=== PATIENT | female | born 1945 | race Caucasian/White ===

== ENCOUNTER → 2016-11-23 | Outpatient (CLI) | payer MEDICARE, OTHER ==
--- NOTE | 2016-11-24 08:24 | MM ---
Reason for exam: screening (asymptomatic). Last mammogram was performed 1 year ago. History: Patient is postmenopausal. Physical Findings: A clinical breast exam by your physician is recommended on an annual basis and results should be correlated with mammographic findings. MG 3D Screening Mammo W/Cad Bilateral CC and MLO view(s) were taken. Prior study comparison: November 21, 2015, bilateral MG screening mammo w CAD. October 11, 2014, bilateral MG screening mammo w CAD. There are scattered fibroglandular densities. No significant changes when compared with prior studies. ASSESSMENT: Benign, BI-RAD 2 RECOMMENDATION: Routine screening mammogram of both breasts in 1 year.
== END | disposition home or self-care (01) ==
LOC: RADMAMWWP 10:02
PROVIDERS: ATTEND Family Medicine
DX: Z12.31 Encounter for screening mammogram for malignant neoplasm of breast (principal)
CPT/HCPCS: 77063; G0202

== ENCOUNTER → 2018-01-18 | Outpatient (CLI) | payer MEDICARE, OTHER ==
--- NOTE | 2018-01-19 10:07 | MM ---
Reason for exam: screening (asymptomatic). Last mammogram was performed 1 year and 2 months ago. History: Patient is postmenopausal. Physical Findings: A clinical breast exam by your physician is recommended on an annual basis and results should be correlated with mammographic findings. MG 3D Screening Mammo W/Cad Bilateral CC and MLO view(s) were taken. Prior study comparison: November 23, 2016, bilateral MG 3d screening mammo w/cad. November 21, 2015, bilateral MG screening mammo w CAD. There are scattered fibroglandular densities. Finding: There are typically benign vascular calcifications in the right breast. There is no discrete abnormality. ASSESSMENT: Benign, BI-RAD 2 RECOMMENDATION: Routine screening mammogram of both breasts in 1 year.
== END | disposition home or self-care (01) ==
LOC: RADMAMWWP 08:32
PROVIDERS: ATTEND Family Medicine
DX: Z12.31 Encounter for screening mammogram for malignant neoplasm of breast (principal)
CPT/HCPCS: 77063; 77067

== ENCOUNTER 2018-03-22 08:08 | Emergency (ER) | payer MEDICARE, OTHER ==
[2018-03-22 08:14] VITALS: RESP 16
[2018-03-22] MEDS ORDERED: SODIUM CHLORIDE 0.9% 1,000 ML IV STA (08:19)
[2018-03-22] MEDS ORDERED: ONDANSETRON 4 MG/2 ML VIAL IVP STA (08:42)
[2018-03-22] MEDS ORDERED: KETOROLAC 30 MG/ML 1 ML VIAL IVP STA (08:42)
--- NOTE | 2018-03-22 08:50 | ED ---
Abdominal Pain HPI - General Chief Complaint: Abdominal Pain Stated Complaint: R flank pain Time Seen by Provider: 03/22/18 08:19 Source: patient, RN notes reviewed Mode of arrival: ambulatory Limitations: no limitations - History of Present Illness Initial Comments: This is a 72-year-old female presents emergency Department chief complaint of right flank pain. Patient states that this pain started around 4:30 this morning and was very intense did lighten up with allow her to drive to the emergency department. Patient states the pain to come and go in waves but never completely alleviate. She states nothing makes the pain feel better or worse. She had nausea earlier denies any vomiting, diarrhea or constipation. Denies chest pain, shortness breath. She states she has known kidney stones from being told based on other studies but states that she's never passed a stone or has never experiences pain. She denies any dysuria or hematuria she's had no fever no chills. - Related Data Home Medications Medication Instructions Recorded Confirmed Aspirin 325 mg PO DAILY 08/31/16 03/22/18 Atorvastatin [Lipitor] 40 mg PO HS 08/31/16 03/22/18 Ibuprofen [Advil] 800 mg PO DAILY@1200 08/31/16 03/22/18 Celecoxib [CeleBREX] 200 mg PO DAILY PRN 03/22/18 03/22/18 Diazepam [Valium] 5 mg PO DAILY PRN 03/22/18 03/22/18 Previous Rx's Medication Instructions Recorded Ketorolac [Toradol] 10 mg PO Q8HR #15 tab 03/22/18 Ondansetron Odt [Zofran Odt] 4 mg PO Q8HR PRN #10 tab 03/22/18 Tamsulosin [Flomax] 0.4 mg PO DAILY #7 cap 03/22/18 traMADol HCl [Ultram] 50 mg PO Q6H PRN #20 tab 03/22/18 Allergies Allergy/AdvReac Type Severity Reaction Status Date / Time gabapentin Allergy Nausea Verified 03/22/18 08:36 hydrocodone Allergy Nausea & Verified 03/22/18 08:36 Vomiting acetaminophen [From Lortab] AdvReac DIZZY Verified 03/22/18 08:36 meloxicam [From Mobic] AdvReac Nausea & Verified 03/22/18 08:36 Vomiting methocarbamol AdvReac Nausea & Verified 03/22/18 08:36 Vomiting morphine AdvReac Nausea & Verified 03/22/18 08:36 Vomiting Review of Systems ROS Statement: Those systems with pertinent positive or pertinent negative responses have been documented in the HPI. ROS Other: All systems not noted in ROS Statement are negative. Past Medical History Additional Past Medical History / Comment(s): fibromygia History of Any Multi-Drug Resistant Organisms: None Reported Past Surgical History: Back Surgery, Section, Hysterectomy Additional Past Surgical History / Comment(s): eye Past Psychological History: No Psychological Hx Reported Smoking Status: Never smoker Past Alcohol Use History: Rare Past Drug Use History: None Reported General Exam Limitations: no limitations General appearance: alert, in no apparent distress Head exam: Present: atraumatic, normocephalic, normal inspection Eye exam: Present: normal appearance, PERRL, EOMI. Absent: scleral icterus, conjunctival injection, periorbital swelling Neck exam: Present: normal inspection. Absent: tenderness, meningismus, lymphadenopathy Respiratory exam: Present: normal lung sounds bilaterally. Absent: respiratory distress, wheezes, rales, rhonchi, stridor Cardiovascular Exam: Present: regular rate, normal rhythm, normal heart sounds. Absent: systolic murmur, diastolic murmur, rubs, gallop, clicks GI/Abdominal exam: Present: soft, normal bowel sounds. Absent: distended, tenderness, guarding, rebound, rigid Back exam: Absent: CVA tenderness (R), CVA tenderness (L) Skin exam: Present: warm, dry, intact, normal color. Absent: rash Course Vital Signs 03/22/18 03/22/18 08:10 09:41 Temperature 97.0 F L Pulse Rate 81 78 Respiratory 16 16 Rate Blood Pressure 174/79 146/69 O2 Sat by Pulse 100 100 Oximetry Medical Decision Making - Medical Decision Making 72-year-old female presented for right flank pain. Patient has a right UVJ 2 mm stone. Patient will be discharged with tramadol, Zofran, Toradol, Flomax. He is advised to follow-up with urology and return for any worsening symptoms. - Lab Data Result diagrams: 03/22/18 08:40 03/22/18 08:40 Lab Results 03/22/18 03/22/18 03/22/18 Range/Units 08:40 08:40 08:40 WBC 11.1 H (3.8-10.6) k/uL RBC 4.61 (3.80-5.40) m/uL Hgb 13.2 (11.4-16.0) gm/dL Hct 40.3 (34.0-46.0) % MCV 87.5 (80.0-100.0) fL MCH 28.5 (25.0-35.0) pg MCHC 32.6 (31.0-37.0) g/dL RDW 13.8 (11.5-15.5) % Plt Count 288 (150-450) k/uL Neutrophils % 85 % Lymphocytes % 9 % Monocytes % 5 % Eosinophils % 1 % Basophils % 0 % Neutrophils # 9.4 H (1.3-7.7) k/uL Lymphocytes # 1.0 (1.0-4.8) k/uL Monocytes # 0.5 (0-1.0) k/uL Eosinophils # 0.1 (0-0.7) k/uL Basophils # 0.0 (0-0.2) k/uL Sodium 143 (137-145) mmol/L Potassium 3.4 L (3.5-5.1) mmol/L Chloride 102 (98-107) mmol/L Carbon Dioxide 25 (22-30) mmol/L Anion Gap 16 mmol/L BUN 21 H (7-17) mg/dL Creatinine 0.99 (0.52-1.04) mg/dL Est GFR (CKD-EPI)AfAm 67 (>60 ml/min/1.73 sqM) Est GFR (CKD-EPI)NonAf 58 (>60 ml/min/1.73 sqM) Glucose 126 H (74-99) mg/dL Calcium 9.7 (8.4-10.2) mg/dL Total Bilirubin 0.4 (0.2-1.3) mg/dL AST 28 (14-36) U/L ALT 32 (9-52) U/L Alkaline Phosphatase 99 (38-126) U/L Total Protein 7.5 (6.3-8.2) g/dL Albumin 4.9 (3.5-5.0) g/dL Amylase 121 H (30-110) U/L Lipase 198 (23-300) U/L Urine Color Yellow Urine Appearance Clear (Clear) Urine pH 6.5 (5.0-8.0) Ur Specific [place] 1.018 (1.001-1.035) Urine Protein Trace H (Negative) Urine Glucose (UA) Negative (Negative) Urine Ketones Negative (Negative) Urine Blood Negative (Negative) Urine Nitrite Negative (Negative) Urine Bilirubin Negative (Negative) Urine Urobilinogen <2.0 (<2.0) mg/dL Ur Leukocyte Esterase Negative (Negative) Disposition Clinical Impression: Right ureteral calculus, Right flank pain Disposition: HOME SELF-CARE Condition: Stable Instructions: Kidney Stones (ED) Additional Instructions: Please return to the Emergency Department if symptoms worsen or any other concerns. Prescriptions: Ketorolac [Toradol] 10 mg PO Q8HR #15 tab Ondansetron Odt [Zofran Odt] 4 mg PO Q8HR PRN #10 tab PRN Reason: Nausea Tamsulosin [Flomax] 0.4 mg PO DAILY #7 cap traMADol HCl [Ultram] 50 mg PO Q6H PRN #20 tab PRN Reason: Pain Is patient prescribed a controlled substance at d/c from ED?: Yes If prescribed controlled substance>3 days was MAPS reviewed?: No When asked, does pt state using other controlled substances?: No Referrals: Juan M Ace MD [Primary Care Provider] - 1-2 days Time of Disposition: 10:46
--- NOTE | 2018-03-22 09:14 | XR ---
Abdomen HISTORY: Kidney stones, right flank pain, abdominal pain Frontal view of the abdomen correlated to CT scan 06/17/2011 Lung bases are clear. There is no evident pneumoperitoneum or bowel obstruction. Degenerative disc ch anges are present within the visualized spine, suspect postop change to the lower lumbar spine. Marke d arthropathy changes present within the bilateral hips. No definite renal calcification identified o n the left, question 2 mm calcification overlying the lower pole of the right kidney. IMPRESSION: Suspect nephrolithiasis as described. Additional findings above.
[2018-03-22 09:16] LABS: Appearance,Urine Clear (Clear); Bilirubin,Urine Negative (Negative); Blood,Urine Negative (Negative); Color,Urine Yellow; Glucose,Urine (UA) Negative (Negative); Ketones,Urine Negative (Negative); Leukocyte Esterase,Urine Negative (Negative); Nitrite,Urine Negative (Negative); PH, Urine 6.5 (5.0-8.0); Protein,Urine Trace (Negative); Specific Gravity,Urine 1.018 (1.001-1.035); Urobilinogen,Urine <2.0 mg/dL (<2.0)
[2018-03-22 09:17] LABS: Basophils % (A) 0 %; Eosinophils # (A) 0.1 k/uL (0-0.7); Eosinophils % (A) 1 %; HCT 40.3 % (34.0-46.0); HGB 13.2 gm/dL (11.4-16.0); Lymphocytes % (A) 9 %; MCH 28.5 pg (25.0-35.0); MCHC 32.6 g/dL (31.0-37.0); MCV 87.5 fL (80.0-100.0); Mean Platelet Volume 7.3; Monocytes # (A) 0.5 k/uL (0-1.0); Monocytes % (A) 5 %; Neutrophils # (A) 9.4 k/uL (1.3-7.7); Neutrophils % (A) 85 %; Platelet Count 288 k/uL (150-450); RBC 4.61 m/uL (3.80-5.40); RDW 13.8 % (11.5-15.5); WBC 11.1 k/uL (3.8-10.6)
[2018-03-22 09:26] LABS: Albumin 4.9 g/dL (3.5-5.0); Calcium 9.7 mg/dL (8.4-10.2); Potassium 3.4 mmol/L (3.5-5.1); Total Bilirubin 0.4 mg/dL (0.2-1.3); Total Protein 7.5 g/dL (6.3-8.2)
--- NOTE | 2018-03-22 10:42 | CT ---
EXAMINATION TYPE: CT abdomen pelvis wo con DATE OF EXAM: 03/22/2018 COMPARISON: NONE HISTORY: 72-year-old female Patient complains of right flank pain. CT DLP: 219 mGycm. Automated exposure control for dose reduction was used. TECHNIQUE: Contiguous axial scanning of the abdomen and pelvis without IV contrast. Coronal and sagit zoey reconstructions performed. FINDINGS: Heart normal size without pericardial effusion. Small hiatal hernia. Strandy atelectasis or scarring lung bases without pleural effusion. Noncontrast appearance of the liver, gallbladder, adrenal glands, spleen, pancreas shows no gross abn ormality. Approximately 5 nonobstructive calculi in the right kidney measuring up to 3 mm. There is mild right- sided hydronephrosis. Punctate 2 mm calculus is seen at the right UVJ, axial image 103. Approximately 9 nonobstructive calculi in the left kidney measuring up to 5 mm. There is a 2.4 cm hyp odense lesion anterior left kidney inadequately characterized on this noncontrast CT. Suspect a cyst. No dilated small bowel, free fluid, or free air. No mesenteric or retroperitoneal lymphadenopathy. Scattered mild to moderate stool especially in the right side of the colon. Mild sigmoid diverticulos is. Bladder is urine distended. Uterus surgically absent. Both ovaries are visualized. No abnormal fluid collection in the pelvis or pelvic lymphadenopathy. Bones: End-stage osteoarthrosis of both hips. Osteopenia. Advanced degenerative changes L3-L4 and L4- L5 with corresponding laminectomies. No osseous destructive process. IMPRESSION: 1. A punctate 2 mm calculus at the right UVJ causing mild obstructive uropathy. 2. Bilateral nephrolithiasis measuring up to 5 mm. 3. Recommend nonemergent follow-up renal ultrasound to ensure that the left kidney lesion represents a 2.4 cm cyst. 4. A couple sigmoid diverticula. 5. End-stage bilateral hip osteoarthrosis.
[2018-03-22 10:58] VITALS: BP 171/79; PULSE 66; TEMP 97.2
== END 2018-03-22 11:00 | disposition home or self-care (01) ==
LOC: EC 08:08
DX: N20.1 Calculus of ureter (principal); M79.7 Fibromyalgia; Z79.82 Long term (current) use of aspirin; Z79.1 Long term (current) use of non-steroidal anti-inflammatories (NSAID); Z79.899 Other long term (current) drug therapy; Z88.8 Allergy status to other drugs, medicaments and biological substances; Z88.5 Allergy status to narcotic agent; Z88.6 Allergy status to analgesic agent
CPT/HCPCS: 99284; 96374; 96375; 36415; 80053; 82150; 83690; 85025; 81003; 74018; 74176; J2405; J1885

== ENCOUNTER → 2018-09-26 | Outpatient (CLI) | payer MEDICARE, OTHER ==
--- NOTE | 2018-09-26 13:15 | XR ---
EXAMINATION TYPE: XR Hip Bilateral and AP pelvis DATE OF EXAM: 09/26/2018 COMPARISON: NONE HISTORY: Pain TECHNIQUE: A single AP view of the pelvis is obtained. Two views of the bilateral hip are obtained. FINDINGS: There is complete loss of joint space bilaterally with remodeling of the acetabulum and fe moral head bilaterally. Benign-appearing cystic changes involving the femoral head. Hypertrophic and degenerative change of the spine. SI joints are symmetric and there is diffuse osteo penia. IMPRESSION: 1. Severe arthropathy of the hip joints bilaterally with complete loss of joint space and remodeling of the acetabulum and femoral head. Osteonecrosis in the differential diagnosis. Consider MRI follow- up.
== END | disposition home or self-care (01) ==
LOC: RADXRMAIN 12:45
PROVIDERS: ATTEND Family Medicine
DX: M16.0 Bilateral primary osteoarthritis of hip (principal)
CPT/HCPCS: 73521

== ENCOUNTER → 2019-02-08 | Outpatient (CLI) | payer MEDICARE, OTHER ==
--- NOTE | 2019-02-08 15:42 | BD ---
EXAMINATION TYPE: Axial Bone Density DATE OF EXAM: 02/08/2019 COMPARISON: NONE CLINICAL HISTORY: Postmenopausal female. Osteoporosis screening. Height: 60 Weight: 114.5 FRAX RISK QUESTIONS: Alcohol (3 or more units per day): no Family History (Parent hip fracture): no Glucocorticoids (More than 3mos): no (Ex: prednisone, prednisolone, methylprednisolone, dexamethasone, and hydrocortisone). History of Fracture in Adulthood: yes Secondary Osteoporosis: 1. Type 1 Diabetes: no 2. Hyperthyroidism: no 3. Menopause before 45: yes 4. Malnutrition: no 5. Chronic liver disease: no Rheumatoid Arthritis: no Current Tobacco Use: no RISK FACTORS HISTORY OF: Spine Fracture: yes lumbar spine When: 2014 Surgery to Spine/Hip(right/left)/Wrist (right/left): spine When: 2014 Family History of Osteoporosis: yes Active: yes Diet low in dairy products/other sources of calcium: yes Postmenopausal woman: age 31 hysterectomy Lost more than 2 inches in height since high school: no MEDICATIONS: lyrica, atorvastatin, celebrex as needed Additional History: EXAM MEASUREMENTS: Bone mineral densitometry was performed using the [employer] System. Bone mineral density about the R hip (g/cm2): 1.272 Bone mineral density about the L hip (g/cm2): 1.214 T Score values are as follows: -----R Neck: 1.7 -----L Neck: 1.3 -----R Total: -1.0 -----L Total: -0.9 Bone mineral density has: increased 6.2 % since study of: Bone mineral density about the L Wrist (g/cm2): 0.553 T Score values are as follows: -----Dist. R+U: -3.4 -----Prox. R+U: -1.1 -----Radius total: -2.0 Bone mineral density : baseline IMPRESSION: Osteoporosis (T Score less than -2.5) with regards to the left wrist. There is increased fracture risk and therapy is usually indicated based on age. Re-Screen 1-2 years. NOTE: T-SCORE=SD OF THE YOUNG ADULT MEAN.
--- NOTE | 2019-02-09 11:02 | MM ---
Reason for exam: screening (asymptomatic). Last mammogram was performed 1 year and 1 month ago. History: Patient is postmenopausal. Physical Findings: A clinical breast exam by your physician is recommended on an annual basis and results should be correlated with mammographic findings. MG 3D Screening Mammo W/Cad Bilateral CC and MLO view(s) were taken. Prior study comparison: January 18, 2018, bilateral MG 3d screening mammo w/cad. November 23, 2016, bilateral MG 3d screening mammo w/cad. The breast tissue is heterogeneously dense. This may lower the sensitivity of mammography. Finding: There is a 5 mm lobulated mass in the subareolar position of the right breast. There is a chronic nodularity in the left breast, stable. ASSESSMENT: Incomplete: need additional imaging evaluation, BI-RAD 0 RECOMMENDATION: Special view mammogram of the right breast. If lesion persists on supplemental views, image directed ultrasound is recommended. [facility] will attempt to contact patient to return for supplemental views and ultrasound if indicated.
== END | disposition home or self-care (01) ==
LOC: RADMAMWWP 07:24
PROVIDERS: ATTEND Family Medicine
DX: Z12.31 Encounter for screening mammogram for malignant neoplasm of breast (principal); M81.0 Age-related osteoporosis without current pathological fracture; Z78.0 Asymptomatic menopausal state
CPT/HCPCS: 77063; 77067; 77080

== ENCOUNTER → 2019-02-14 | Outpatient (CLI) | payer MEDICARE, OTHER ==
--- NOTE | 2019-02-14 14:57 | MM ---
Reason for exam: additional evaluation requested from abnormal screening. Last mammogram was performed less than 1 month ago. History: Patient is postmenopausal. Physical Findings: Nurse did not find any significant physical abnormalities on exam. MG 3D Work Up W/Cad RT Spot compression CC and spot compression MLO view(s) were taken of the right breast. Prior study comparison: February 08, 2019, bilateral MG 3d screening mammo w/cad. January 18, 2018, bilateral MG 3d screening mammo w/cad. There are scattered fibroglandular densities. No significant new findings when compared with previous films. These results were verbally communicated with the patient and result sheet given to the patient on 02/14/19. ASSESSMENT: Benign, BI-RAD 2 RECOMMENDATION: Return to routine screening mammogram schedule for both breasts.
== END | disposition home or self-care (01) ==
LOC: RADMAMWWP 14:01
PROVIDERS: ATTEND Family Medicine
DX: R92.8 Other abnormal and inconclusive findings on diagnostic imaging of breast (principal)
CPT/HCPCS: 77065; G0279; 77061

== ENCOUNTER → 2019-04-19 | Outpatient (CLI) | payer MEDICARE, OTHER ==
--- NOTE | 2019-04-19 22:11 | MR ---
EXAMINATION TYPE: MR lumbar spine wo/w con DATE OF EXAM: 04/19/2019 COMPARISON: MRI lumbar spine April 01, 2015 HISTORY: LBP, LLE radic x 5 weeks, hx surgery x 2 TECHNIQUE: Multiplanar, multisequence images of the lumbar spine is performed without and with IV contrast, util izing 5 mL intravenous Gadavist FINDINGS: Sagittal images of the lumbar spine show vertebral body heights and alignment to remain sat isfactory. Multilevel disc desiccation with multilevel disc space narrowing is again seen. Relative s paring of the L4-L5 level is redemonstrated. Posterior decompression lower lumbar spine is again seen . The conus medullaris remains normal in position and signal ending mid L1 level. There is 1.8 cm Tar howard cyst posterior S2 level sagittal image 9. Mild to moderate multilevel anterior spurring is redemo nstrated. The bone marrow signal intensity is within normal limits. No suspicious postcontrast enhanc ement is seen. Axial images at the T12-L1 level shows mild broad-based disc bulge mildly effacing the anterior theca l sac, bilateral neural foramina are patent and no significant change from prior. Axial images at the L1-L2 levels geer-kb-ewaonmfs broad disc bulge effacing anterior thecal sac on ax ial image 27, bilateral neuroforamina are patent. No significant change from prior. Axial images at the L2-L3 level show moderate broad disc bulge effacing anterior thecal sac with mild facet degenerative changes bilaterally patent posterior left thecal sac. This progression from prior MRI noted. There is mild bilateral anterior inferior neural foraminal narrowing now identified. Axial images at the L3-L4 level show moderate broad disc bulge with ijbx-yb-zsoiflig facet degenerati ve changes bilaterally. There is effacement of anterior thecal sac axial image 18. There is moderate left and mild right-sided neural foraminal narrowing with some progression from prior MRI noted. Axial images at the L4-L5 level show moderate type II endplate changes. Posterior decompression is se en with spinous process resection. There is moderate to advanced broad disc bulge mildly effacing ant erior thecal sac. There is moderate left and advanced right-sided inferior neural foraminal narrowing redemonstrated. No significant change from prior. Axial images at the L5-S1 levels and eamw-zp-kplqlgaq facet degenerative changes bilaterally. There i s yovu-zo-vqqlnlnt broad disc bulge. Spinal canal is preserved. There is wqfr-rq-cgwbdgwi bilateral a nterior inferior neural foraminal narrowing noted. There are a few simple appearing cysts scattered throughout the left kidney. No significant change fr om prior. IMPRESSION: Multilevel degenerative changes in the lumbar spine as detailed above, some progression a t L2-L3 and L3-L4 levels are noted from prior MRI.
== END | disposition home or self-care (01) ==
LOC: RADMRIMAIN 20:14
PROVIDERS: ATTEND Family Medicine
DX: M48.04 Spinal stenosis, thoracic region (principal); M48.061 Spinal stenosis, lumbar region without neurogenic claudication; M48.07 Spinal stenosis, lumbosacral region; M47.816 Spondylosis without myelopathy or radiculopathy, lumbar region; M47.817 Spondylosis without myelopathy or radiculopathy, lumbosacral region; M51.84 Other intervertebral disc disorders, thoracic region; M51.86 Other intervertebral disc disorders, lumbar region; M51.87 Other intervertebral disc disorders, lumbosacral region
CPT/HCPCS: 72158; A9585

== ENCOUNTER → 2019-04-20 | Outpatient (CLI) | payer MEDICARE, OTHER ==
[2019-04-20 10:55] LABS: HCT 38.1 % (34.0-46.0); HGB 12.2 gm/dL (11.4-16.0); MCH 28.7 pg (25.0-35.0); MCHC 32.1 g/dL (31.0-37.0); MCV 89.4 fL (80.0-100.0); Mean Platelet Volume 7.3; Platelet Count 283 k/uL (150-450); RBC 4.27 m/uL (3.80-5.40); RDW 13.4 % (11.5-15.5); WBC 4.4 k/uL (3.8-10.6)
[2019-04-20 11:01] LABS: Appearance,Urine Clear (Clear); Bilirubin,Urine Negative (Negative); Blood,Urine Negative (Negative); Color,Urine Light Yellow; Glucose,Urine (UA) Negative (Negative); Ketones,Urine Negative (Negative); Leukocyte Esterase,Urine Negative (Negative); Nitrite,Urine Negative (Negative); PH, Urine 5.5 (5.0-8.0); Protein,Urine Negative (Negative); Specific Gravity,Urine 1.005 (1.001-1.035); Urobilinogen,Urine <2.0 mg/dL (<2.0)
[2019-04-20 11:15] LABS: INR 0.9 (<1.2)
[2019-04-20 11:16] LABS: ALT 27 U/L (9-52); AST 32 U/L (14-36); African American GFR (CKD) >90 (>60 ml/min/1.73 sqM); Albumin 4.4 g/dL (3.5-5.0); Alkaline Phosphatase 89 U/L (38-126); Anion Gap 7 mmol/L; Blood Urea Nitrogen 18 mg/dL (7-17); Calcium 9.3 mg/dL (8.4-10.2); Carbon Dioxide 27 mmol/L (22-30); Chloride 107 mmol/L (98-107); Glucose 110 mg/dL (74-99); Partial Thromboplastin Time 25.8 sec (22.0-30.0); Potassium 4.2 mmol/L (3.5-5.1); Prothrombin Time 10.1 sec (9.0-12.0); Sodium 141 mmol/L (137-145); Total Bilirubin 0.6 mg/dL (0.2-1.3)
== END | disposition home or self-care (01) ==
LOC: LABPAT 09:44
PROVIDERS: ATTEND Orthopaedic Surgery
DX: Z01.812 Encounter for preprocedural laboratory examination (principal); Z01.818 Encounter for other preprocedural examination; Z79.01 Long term (current) use of anticoagulants
CPT/HCPCS: 36415; 80053; 81003; 85027; 85610; 85730; 87070; 93005

== ENCOUNTER 2019-05-01 11:07 | Inpatient (IN) | payer MEDICARE, OTHER ==
[~2019-05-01 11:07] MED LIST: LACTATED RINGERS 1,000 ML IV SCH; LIDOCAINE 1% 20 ML VIAL (10MG/ML) FOR IV START INTRADERMA PRN; MELOXICAM 7.5 MG TAB PO ONE; MIDAZOLAM 2 MG/2 ML VIAL IV PRN; ONDANSETRON 4 MG/2 ML VIAL IVP ONE; TRANEXAMIC ACID 1,000 MG in SODIUM CHLORIDE 0.9% 100 ML IVPB ONE; ceFAZolin IN SWFI 2 GM/20 ML SYRINGE IVP ONE; fentaNYL (PF) 50 MCG/ML 2 ML AMP IV PRN; fentaNYL (PF) 50 MCG/ML 2 ML AMP IVP PRN
[2019-05-01] MEDS ORDERED: DEXAMETHASONE SOD PHOS (MDV) 100 MG/10 ML VIAL IVP ONE (12:10)
[2019-05-01] MEDS ORDERED: ACETAMINOPHEN TAB 500 MG TAB PO ONE (12:11)
[2019-05-01] MEDS ORDERED: SODIUM CHLORIDE 0.9% 100 ML BAG ONE (12:18)
[2019-05-01] MEDS ORDERED: PROPOFOL 10 MG/ML 20 ML VIAL IV ONE (12:18)
[2019-05-01] MEDS ORDERED: MIDAZOLAM 2 MG/2 ML VIAL ONE (12:18)
[2019-05-01] MEDS ORDERED: fentaNYL (PF) 50 MCG/ML 2 ML AMP ONE (12:18)
[2019-05-01] MEDS ORDERED: ePHEDrine SULFATE/0.9% NACL/PF 50 MG/5 ML SYRINGE IV ONE (12:18)
[2019-05-01] MEDS ORDERED: TRANEXAMIC ACID 1,000 MG/10 ML VIAL ONE (12:18)
[2019-05-01] MEDS ORDERED: ROPIVACAINE 246.25 MG, EPINEPHrine 0.5 MG, KETOROLAC 30 MG, cloNIDine HCL/PF 80 MCG, WA... MISCELLANE STA ×5 (12:51)
[2019-05-01] MEDS ORDERED: ceFAZolin 3,000 MG in SODIUM CHLORIDE 0.9% IRRIGATIO 3,000 ML IRRIGATION ONE (13:18)
[2019-05-01] MEDS ORDERED: LACTATED RINGERS 1,000 ML IV ONE (14:00)
[2019-05-01] MEDS ORDERED: NALOXONE 0.4 MG/ML 1 ML VIAL IV PRN ×2 (14:38→14:41)
[2019-05-01] MEDS ORDERED: TEMAZEPAM 15 MG CAP PO PRN (14:41)
[2019-05-01] MEDS ORDERED: ONDANSETRON 4 MG/2 ML VIAL IVP PRN (14:41)
[2019-05-01] MEDS ORDERED: HYDROmorphone 0.5 MG/0.5 ML SYRINGE IVP PRN ×3 (14:41)
[2019-05-01] MEDS ORDERED: MAGNESIUM HYDROXIDE 2,400 MG/10 ML CUP PO PRN (14:41)
[2019-05-01] MEDS ORDERED: traMADol 50 MG TAB PO PRN (14:41)
--- NOTE | 2019-05-01 15:00 | XR ---
Left hip Limited HISTORY: Postop Single frontal view of the left hip Patient is status post left hip arthroplasty. There is anatomic alignment. Lucency present in the sof t tissues compatible with postop state. Bone mineralization somewhat reduced. IMPRESSION: Orthopedic follow-up.
[2019-05-01] MEDS ORDERED: DIAZEPAM 5 MG TAB PO PRN (16:11)
[2019-05-01] MEDS: LACTATED RINGERS 1,000 ML IV SCH ×2 (17:04→23:57)
[2019-05-01 17:22] VITALS: BMI 21.2
[2019-05-01] MEDS: ceFAZolin IN SWFI 2 GM/20 ML SYRINGE IVP SCH ×2 (18:06→23:56)
[2019-05-01] MEDS ORDERED: PREGABALIN 75 MG CAP PO SCH (21:00)
[2019-05-01] MEDS ORDERED: ATORVASTATIN 40 MG TAB PO SCH (21:00)
[2019-05-01] MEDS ORDERED: SENNOSIDES-DOCUSATE SODIUM 1 EACH TAB PO SCH (21:00)
[2019-05-01] MEDS: ASPIRIN 325 MG TAB PO SCH (21:00)
[2019-05-02 07:55] VITALS: BP 128/73; PULSE 86; RESP 15; TEMP 98.2
--- NOTE | 2019-05-02 08:18 | CONS ---
CONSULTATION DATE OF SERVICE: 05/01/2019. REASON FOR CONSULTATION: Advice regarding hyperlipidemia and other multiple medical issues requested by orthopedics. HISTORY OF PRESENT ILLNESS: This 73-year-old woman with a past medical history of multiple medical problems including CVA/TIA, fibromyalgia, hyperlipidemia, TIA being followed by Dr. Juan M Ace in the outpatient setting was admitted after left hip surgery. The patient is not having chest pain. No palpitations. No headache, loss of consciousness, nausea, diarrhea, fever, rigors or chills. PAST MEDICAL HISTORY: CVA, TIA, fibromyalgia, hyperlipidemia, TIAs, history of back surgery, section. MEDICATIONS: Reviewed and include: 1. Lyrica 75 mg q.h.s. 2. Advil 800 mg daily p.r.n. 3. Valium 5 mg daily p.r.n. 4. Celebrex 200 mg daily p.r.n. 5. Lipitor 40 mg q.h.s. 6. Aspirin 320 mg p.o. daily. 7. Ultram 50 mg q.6h p.r.n. 8. Senokot-S 1 tablet p.o. b.i.d. 9. Aspirin 320 mg b.i.d. ALLERGIES: GABAPENTIN, HYDROCODONE, NAPROSYN, LORTAB, MOBIC. MORPHINE. FAMILY HISTORY: No history of heart disease or strokes in the family. SOCIAL HISTORY: No history of smoking, occasional alcohol intake. REVIEW OF SYSTEMS: ENT: No diminished vision. No diminished hearing. CARDIOVASCULAR: No angina. RESPIRATION: No cough or hemoptysis. GI no nausea or vomiting. : No dysuria. NERVOUS SYSTEM: No numbness or weakness. ALLERGY/IMMUNOLOGY: No asthma or hayfever. MUSCULOSKELETAL as mentioned earlier. HEMATOLOGY/ONCOLOGY: No history of anemia. ENDOCRINE: No history of diabetes or hypothyroidism. CONSTITUTIONAL: As mentioned earlier. DERMATOLOGY: Negative. RHEUMATOLOGY: Negative. PSYCHIATRIC: As mentioned. PHYSICAL EXAMINATION: Alert and oriented times three. Pulse is 69. Blood pressure 135/81, respiration 18, temperature 97.7, pulse ox 98 percent on room air. HEENT: Conjunctivae normal. NECK: No jugular venous distention. CARDIOVASCULAR: S1, S2 muffled. RESPIRATION: Breath sounds diminished in the bases. No rhonchi. No crackles. ABDOMEN: Soft, nontender. LEGS: Status post surgery. NERVOUS SYSTEM as mentioned earlier. Moves all 4 limbs equally. No focal motor deficits. LYMPHATICS: No lymph nodes palpable in the neck, axillae or groin. SKIN: No ulcer, rashes or bleeding. JOINTS: No active deforming arthropathy. LABS: Previous preop labs are reviewed. CBC within normal limits. Coags are normal and chemistry showed glucose 110, otherwise UA showed the most recent UA is unremarkable. ASSESSMENT: 1. Status post subtotal left hip arthroplasty. 2. History of cerebrovascular accident/ transient ischemic attack. 3. Fibromyalgia. 4. Hyperlipidemia. 5. History of transient ischemic attack. 6. Caesarean section. RECOMMENDATIONS AND DISCUSSION: This 73-year-old woman who presented with multiple medical issues, we will monitor the patient closely. Continue the current medications. Resume the home medications. DVT prophylaxis. Incentive spirometry. The patient may be asked to follow with Dr. Ace closely after discharge. Thank you Dr. Ervin for letting us participate in the care of this patient. MMODL / IJN: [id number] / MTDD
[2019-05-02] MEDS ORDERED: MELOXICAM 7.5 MG TAB PO SCH (09:00)
[2019-05-02 09:03] LABS: Basophils % (A) 0 %; Eosinophils % (A) 0 %; HCT 32.1 % (34.0-46.0); HGB 10.3 gm/dL (11.4-16.0); Lymphocytes % (A) 10 %; MCH 29.1 pg (25.0-35.0); MCV 90.8 fL (80.0-100.0); Mean Platelet Volume 7.6; Monocytes # (A) 0.5 k/uL (0-1.0); Monocytes % (A) 4 %; Neutrophils # (A) 8.9 k/uL (1.3-7.7); Neutrophils % (A) 85 %; Platelet Count 279 k/uL (150-450); RBC 3.53 m/uL (3.80-5.40); RDW 13.7 % (11.5-15.5); WBC 10.5 k/uL (3.8-10.6)
--- NOTE | 2019-05-02 09:52 | P.DS ---
Providers Date of admission: 05/01/19 11:07 Expected date of discharge: 05/02/19 Attending physician: Juwan Ervin Consults: 05/01/19 14:41 Consult Physician Routine Consulting Provider: Jay Manrique Consult Reason/Comments: Medical management Do you want consulting provider notified?: Yes 05/02/19 09:30 Consult Physician Urgent Consulting Provider: Anurag Smith Consult Reason/Comments: Radiation left hip Do you want consulting provider notified?: Yes Primary care physician: Juan M Ace - Discharge Diagnosis(es) (1) Osteoarthritis of left hip Current Visit: Yes Status: Acute (2) Status post total hip replacement, left Current Visit: Yes Status: Acute Hospital Course: This is a 73-year-old female with known history of degenerative arthritis of the left hip. The patient presents for evaluation. After discussion and consideration patient elects to proceed with total hip arthroplasty. The patient is seen preoperatively by her primary care physician and cleared for surgery. Patient is admitted to [facility] on 05/01/2019 for total hip arthroplasty. The procedures performed without complication or sequelae. The patient is doing well postoperatively. Labs and vital signs are stable on day of discharge. On day of discharge patient's hip incision is healing well. There is minimal erythema. There is no drainage noted at this time. There is minimal soft tissue swelling to the hip and thigh. Patient has full foot and ankle motion without difficulty or pain. Neurovascular status to the left lower extremity is intact. 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 Patient is discharged to home in good condition. Please see med rec for accurate list of home medications. Plan - Discharge Summary Discharge Rx Participant: No New Discharge Prescriptions: New Aspirin 325 mg PO DAILY #30 tab No Action Atorvastatin [Lipitor] 40 mg PO HS Ibuprofen [Advil] 800 mg PO DAILY@1200 Diazepam [Valium] 5 mg PO DAILY PRN PRN Reason: Anxiety Celecoxib [CeleBREX] 200 mg PO DAILY PRN PRN Reason: Pain Pregabalin [Lyrica] 75 mg PO HS Discharge Medication List Atorvastatin [Lipitor] 40 mg PO HS 08/31/16 [History] Ibuprofen [Advil] 800 mg PO DAILY@1200 08/31/16 [History] Celecoxib [CeleBREX] 200 mg PO DAILY PRN 03/22/18 [History] Diazepam [Valium] 5 mg PO DAILY PRN 03/22/18 [History] Pregabalin [Lyrica] 75 mg PO HS 04/21/19 [History] Aspirin 325 mg PO DAILY #30 tab 05/02/19 [Rx] Follow up Appointment(s)/Referral(s): Beth Mendez, JARON [PHYSICIAN CASHIER MANAGER] - 2 Weeks Activity/Diet/Wound Care/Special Instructions: May shower if no drainage at 48h post op. May bear wt as tolerated w walker. May take advil or celebrex for pain as needed. ASA 325mg once daily X30 days. Discharge Disposition: HOME WITH HOME HEALTH SERVICES
[2019-05-02] MEDS: ASPIRIN 325 MG TAB PO SCH (10:20)
[2019-05-02] MEDS: LACTATED RINGERS 1,000 ML IV SCH (12:12)
--- NOTE | 2019-05-02 23:13 | PN ---
PROGRESS NOTE DATE OF SERVICE: 05/02/2019 This 73-year-old woman being followed by Dr. Juan M Ace in the outpatient setting underwent subtotal left hip arthroplasty. Patient improving significantly. No chest pain. No palpitations. No fever. EXAM: Alert and oriented times three. Pulse is 86. Blood pressure 138/73, respiration 15, temperature 98.2, pulse ox 98% on room air. HEENT: Conjunctivae normal. NECK: No jugular venous distention. CARDIOVASCULAR: S1, S2 muffled. RESPIRATORY: Breath sounds diminished in the bases. No rhonchi. No crackles. ABDOMEN: Soft. LEGS: Status post surgery. NERVOUS SYSTEM: No focal deficits. LABS: Hemoglobin 10.3. Other labs are noted. ASSESSMENT: 1. Status post subtotal left hip arthroplasty. 2. History of cerebrovascular accident/transient ischemic attack. 3. Fibromyalgia. 4. Hyperlipidemia.. 5. History of transient ischemic attack. 6. History of section. RECOMMENDATIONS AND DISCUSSION: Continue current medications, management and symptomatic treatment. Continue DVT prophylaxis. Incentive spirometry. Resume the home medications. Follow closely with Dr. Ace when the patient is maybe in the next 1-2 weeks or p.r.n. Otherwise rest of the recommendations per Orthopedic surgery. Further recommendations to follow. MMODL / IJN: [id number] / [id number]
--- NOTE | 2019-05-03 12:13 | P.OP ---
Date of Procedure: 05/01/19 Procedure(s) Performed: total hip left side fiber metal midcoat tracy 75 ebl no comp PREOPERATIVE DIAGNOSIS: Left hip severe osteoarthritis POSTOPERATIVE DIAGNOSIS: Left hip severe osteoarthritis OPERATION: Left hip total replacement arthroplasty (uncemented implantation with ceramic on polyethylene articulation). ANESTHESIA: Spinal ESTIMATED BLOOD LOSS: 75 ml. EVENT PLANNING MANAGER: Beth Mendez PA-C (assistance with: patient positioning, retraction, exposure, hemostasis, leg positioning, implantation, irrigation, closure, dressing) COMPLICATIONS: None apparent. COMPONENTS IMPLANTED: Simeon Continuum acetabular cup with cluster holes; Continuum longevity 15 elevated liner, 32 mm id; Simeon VerSys Fiber Metal mid coat stem; VerSys Biolox 32 mm ceramic femoral head with 0 mm neck length extension INDICATIONS: Mrs. Brennan is a 73-year-old female with significant end-stage ost eoarthritis involving the left hip and commensurate severe symptoms. She has severely arthritic hips on both sides. She presents to the operating room today for left total hip replacement. Leg lengths were assessed and were found to be basically equal. I have discussed the steps of the operation as well as potential risks and complications as being inclusive of, but not limited to: Leading, infection, scarring, discomfort, or vessel and/or nerve damage, need for further surgery, loosening, dislocation, wear, osteolysis, limb length inequality, fracture, blood clot, pulmonary embolism, , persistent limp, and other risks. We have spoken about the options of approach, posterior versus anterior, and she is comfortable with me proceeding with the posterior approach. The patient is aware these risks and wishes to proceed with surgery and has signed a consent form. PROCEDURE: After appropriate consent was obtained, the patient was taken to the operating room and placed in supine position. Spinal anesthetic was administered and after confirmation of adequate anesthesia, the patient was placed into the lateral decubitus position with the left side up. Care was taken to make sure t hat all pressure points were adequately padded and he was stabilized to the table with a [place] hip positioner. The left hip was prepped and draped in the usual aseptic fashion using a combination of ChloraPrep and alcohol. Ioban drape was used for the case and the patient received intravenous antibiotics prior to the incision. "Time out" was called, confirming patient identity, side, procedure, availability of implants and administration of antibiotics and tranexamic acid. The incision was created directly over the greater trochanter and carried slightly posteriorly for a posterior approach to the hip. The incision was then deepened down to subcutaneous tissue and fascia clara. Fascia clara was split in line with the incision and split proximally along the fibers of the gluteus maxi mus. The underlying fibers of the muscle were teased apart using finger dissection and bleeding vessels were picked up and coagulated. Retractor was then placed posteriorly consisting of a blunt [place]. The short external rotators and capsule were exposed using good visualization of the attachment of the external rotators to the femur was established. The short external rotators and capsule were released using electrocautery from their femoral attachments. A hockey stick shaped incision was created in the capsule. Joint fluid was evacuated and the patient's hip was able to be dislocated fairly easily. The patient's femoral head was severely arthritic with eburnated bone present and a 360 degrees rodríguez of osteophytes. The femoral neck cut was created approximately 1 cm superior to the lesser trochanter using a reciprocating saw. The femoral head and neck fragment was removed and attention was then directed to the acetabulum. An anterior acetabular retractor was applied followed by posterior retraction of the capsule with a Meyerding retractor. This afforded good visualization into the acetabular cavity. Soft tissue was removed and residual cartilage within the acetabular vault was removed using a curette. Labrum was removed using a long-handled knife. Attention was then directed to reaming. The size 44 reamer was used first, followed by increasing increments until the final size reamer was used. Please see the implantation sheet for exact sizes used for the components. Once the final reamer had been utilized to expand the socket it was noted that there was a good supportive bone around the acetabular socket and no further reaming needed to be performed. The trial the same size as the last reamer used was then impacted into the acetabular vault and found to have good fit. The acetabular component, one size (2mm) greater than the trial was then called for. The cluster holes were placed posteriorly and the component was impacted in a position of approximately 40 degrees abduction and 20 degrees anteversion. This matched this patient's [place] anteversion and it was noted that the cup had excellent stability. However, as this patient was 73 years old and had some degree of osteopenia, I placed an approximately 25 mm 6.5 mm screw in the posterior superior cluster hole for additional supplemental fixation. Attention was then directed to the acetabular liner. The anteversion and abduction angle of the component was noted to be very good. A 15 elevated liner was used and locked into position, with the elevation being posterior and superior. Osteophytes around the posterior and inferior aspect of the acetabulum were trimmed as necessary to prevent any impingement. Attention was then directed back to the proximal femur. Retractors were placed around the proximal femur and box osteotome was used followed by canal finder and trochanteric reamer. Cylindrical reaming was performed. Progressive broaching was then performed starting with a #10 broach and progressing final size, in a position of 15 degrees anteversion. [place] anteversion was within 5 degrees of stem position. The final size broach had excellent fit and fill of the patient's metaphysis and diaphysis. Trial reduction was then performed starting with size 32 mm femoral head and various neck combination of stability, limb length equality, and soft tissue tension. Trial components were then removed. The canal was lavaged and the final size femoral stem component was impacted into position. The implant fit very well and had excellent stability. The femoral head was then impacted onto the Cabrera taper. Blood and debris were removed from the acetabular component and the hip was then reduced and checked for stability, limb length and soft tissue tension. These parameters found to be satisfactory, the wound was then thoroughly irrigated with normal saline. Final hemostasis was obtained using electrocautery and IV tranexamic acid, 1 g given at the time of prepping and draping, and another 1 g given at the time of closure. Local anesthetic solution consisting of ropivacaine with epinephrine, clonidine, and ketorolac was also used throughout the case targeting the capsule, fascia, and skin. Closure of the capsule was performed meticulously using #3 Vicryl suture. Four [id number] sutures were placed in the posterior capsule along with repair of the external rotators. The fascia clara was then repaired using combination of #3 Vicryl suture in interrupted fashion and Quill and running fashion. 2-0 Vicryl suture was used for the subcutaneous tissues and 3-0 Quill for the skin. Dermabond or Steri-Strips were then applied. The patient tolerated the procedure well. There were no complications and the wound bed was dry and there was no need for drain placement. Sterile dressing was then applied and the patient was carefully removed from the operating room table, placed on the stretcher and was taken to the recovery room in stable condition. Sponge and needle counts were correct.
== END 2019-05-02 13:49 | disposition home health service (06) | DRG 470 ==
LOC: 2ORMAIN 11:07 → 4SSUR 15:17
PROVIDERS: ADMIT Orthopaedic Surgery; ATTEND Orthopaedic Surgery
PROC: 0SRB04A Replacement of Left Hip Joint with Ceramic on Polyethylene Synthetic Substitute, Uncemented, Open Approach (ICD-10-PCS; principal; 2019-05-01 12:30)
DX: M16.12 Unilateral primary osteoarthritis, left hip (principal); E78.5 Hyperlipidemia, unspecified; M85.80 Other specified disorders of bone density and structure, unspecified site; F41.9 Anxiety disorder, unspecified; M79.7 Fibromyalgia; M51.36 Other intervertebral disc degeneration, lumbar region; Z79.1 Long term (current) use of non-steroidal anti-inflammatories (NSAID); Z79.899 Other long term (current) drug therapy; Z86.73 Personal history of transient ischemic attack (TIA), and cerebral infarction without residual deficits; Z98.891 History of uterine scar from previous surgery; Z98.890 Other specified postprocedural states; Z98.42 Cataract extraction status, left eye; Z98.41 Cataract extraction status, right eye; Z90.710 Acquired absence of both cervix and uterus
CPT/HCPCS: 73501; 85025; 86850; 86900; 86901; 88300

== ENCOUNTER → 2019-09-13 | Outpatient (CLI) | payer MEDICARE, OTHER ==
[2019-09-13 11:03] LABS: Appearance,Urine Clear (Clear); Bilirubin,Urine Negative (Negative); Blood,Urine Negative (Negative); Color,Urine Light Yellow; Glucose,Urine (UA) Negative (Negative); Ketones,Urine Negative (Negative); Leukocyte Esterase,Urine Negative (Negative); Nitrite,Urine Negative (Negative); Protein,Urine Negative (Negative); Specific Gravity,Urine 1.007 (1.001-1.035); Urobilinogen,Urine <2.0 mg/dL (<2.0)
[2019-09-13 11:08] LABS: HCT 39.3 % (34.0-46.0); HGB 12.7 gm/dL (11.4-16.0); MCH 28.7 pg (25.0-35.0); MCHC 32.4 g/dL (31.0-37.0); MCV 88.5 fL (80.0-100.0); Mean Platelet Volume 6.5; Platelet Count 290 k/uL (150-450); RBC 4.44 m/uL (3.80-5.40); RDW 14.1 % (11.5-15.5); WBC 5.9 k/uL (3.8-10.6)
[2019-09-13 11:18] LABS: Albumin 4.6 g/dL (3.5-5.0); Potassium 4.1 mmol/L (3.5-5.1); Total Bilirubin 0.8 mg/dL (0.2-1.3); Total Protein 7.5 g/dL (6.3-8.2)
[2019-09-13 11:19] LABS: INR 0.9 (<1.2); Partial Thromboplastin Time 26.1 sec (22.0-30.0); Prothrombin Time 10.1 sec (9.0-12.0)
== END | disposition home or self-care (01) ==
LOC: LABPAT 09:56
PROVIDERS: ATTEND Orthopaedic Surgery
DX: Z01.810 Encounter for preprocedural cardiovascular examination (principal); Z01.812 Encounter for preprocedural laboratory examination; I50.9 Heart failure, unspecified
CPT/HCPCS: 36415; 80053; 80061; 81003; 85027; 85610; 85730; 86850; 86900; 86901; 87070; 93005

== ENCOUNTER 2019-09-25 14:04 | Inpatient (IN) | payer MEDICARE, OTHER ==
[2019-09-22 08:41] VITALS: BMI 22.2
[~2019-09-25 14:04] MED LIST changes: +ACETAMINOPHEN TAB 500 MG TAB PO ONE; -LIDOCAINE 1% 20 ML VIAL (10MG/ML) FOR IV START INTRADERMA PRN; +ROPIVACAINE 246.25 MG, EPINEPHrine 0.5 MG, KETOROLAC 30 MG, cloNIDine HCL/PF 80 MCG, WA... MISCELLANE ONE; -ceFAZolin IN SWFI 2 GM/20 ML SYRINGE IVP ONE; -fentaNYL (PF) 50 MCG/ML 2 ML AMP IVP PRN
[2019-09-25] MEDS ORDERED: DEXAMETHASONE SOD PHOSPHATE 10 MG/ML 1 ML VIAL IV ONE (14:39)
[2019-09-25] MEDS ORDERED: SCOPOLAMINE 1.5MG/72HR PATCH TRANSDERM ONE (14:39)
[2019-09-25] MEDS ORDERED: ONDANSETRON 4 MG/2 ML VIAL IVP PRN (15:00)
[2019-09-25] MEDS ORDERED: MAGNESIUM HYDROXIDE 2,400 MG/10 ML CUP PO PRN (15:00)
[2019-09-25] MEDS ORDERED: NALOXONE 0.4 MG/ML 1 ML VIAL IV PRN ×2 (15:00→18:12)
[2019-09-25] MEDS ORDERED: ceFAZolin 3,000 MG in SODIUM CHLORIDE 0.9% IRRIGATIO 3,000 ML IRRIGATION ONE (15:35)
[2019-09-25] MEDS ORDERED: LACTATED RINGERS 1,000 ML IV ONE (16:59)
--- NOTE | 2019-09-25 17:17 | P.OP ---
Date of Procedure: 09/25/19 Procedure(s) Performed: PREOPERATIVE DIAGNOSIS: Right hip severe osteoarthritis; osteopenia/diminished bone quality POSTOPERATIVE DIAGNOSIS: Right hip severe osteoarthritis; osteopenia/diminished bone quality OPERATION: Right hip total replacement arthroplasty (uncemented implantation with ceramic on polyethylene articulation). ANESTHESIA: Spinal ESTIMATED BLOOD LOSS: 200 ml. PEER FINANCIAL COUNSELOR: Kamille Martinez NP (assistance with: patient positioning, retraction, exposure, hemostasis, leg positioning, implantation, irrigation, closure, dressing) COMPLICATIONS: None apparent. COMPONENTS IMPLANTED: Simeon continuum acetabular cup 48 mm with cluster holes; continuum longevity 15 elevated liner, 32 mm id; Simeon VerSys Fiber Metal size 11 stem; VerSys 32 mm femoral head with +0 mm neck length extension; 30 mm 6.5 mm acetabular screw INDICATIONS: Mrs. Brennan is a 73-year-old female with significant end-stage osteoarthritis involving the right hip and commensurate severe symptoms. She presents to the operating room today for right total hip replacement. She is artery successfully undergone left total hip replacement earlier this year. I have discussed the steps of the operation as well as potential risks and complications as being inclusive of, but not limited to: Leading, infection, scarring, discomfort, or vessel and/or nerve damage, need for further surgery, loosening, dislocation, wear, osteolysis, limb length inequality, fracture, blood clot, pulmonary embolism, , persistent limp, and other risks. The patient is aware these risks and wishes to proceed with surgery and has signed a consent form. PROCEDURE: After appropriate consent was obtained, the patient was taken to the operating room and placed in supine position. Spinal anesthetic was administered and after confirmation of adequate anesthesia, the patient was placed into the lateral decubitus position with the right side up. Care was taken to make sure that all pressure points were adequately padded and he was stabilized to the table with a [place] hip positioner. The right hip was prepped and draped in the usual aseptic fashion using a combination of ChloraPrep and alcohol. Ioban drape was used for the case and the patient received intravenous antibiotics prior to the incision. "Time out" was called, confirming patient identity, side, procedure, availability of implants and administration of antibiotics. The incision was created directly over the greater trochanter and carried slightly posteriorly for a posterior approach to the hip. The incision was then deepened down to subcutaneous tissue and fascia clara. Fascia clara was split in line with the incision and split proximally along the fibers of the gluteus saumya. The underlying fibers of the muscle were teased apart using finger dissection and bleeding vessels were picked up and coagulated. Retractor was then placed posteriorly consisting of a blunt [place]. The short external rotators and capsule were exposed using good visualization of the attachment of the external rotators to the femur was established. The short external rotators and capsule were released using electrocautery from their femoral attachments. A hockey stick shaped incision was created in the capsule. Joint fluid was evacuated and the patient's hip was able to be dislocated fairly easily. The patient's femoral head was severely arthritic with eburnated bone present and a 360 degrees rodríguez of osteophytes. The femoral neck cut was created approximately 1 cm superior to the lesser trochanter using a reciprocating saw. The femoral head and neck fragment was removed and attention was then directed to the acetabulum. An anterior acetabular retractor was applied followed by posterior retraction of the capsule with a Meyerding retractor. This afforded good visualization into the acetabular cavity. Soft tissue was removed and residual cartilage within the acetabular vault was removed using a curette. Patient had a fairly shallow socket. Labrum was removed using a long-handled knife. Attention was then directed to reaming. The size 44 reamer was used first, followed by increasing increments until the final size reamer was used. Please see the implantation sheet for exact sizes used for the components. Once the final reamer had been ut ilized to expand the socket it was noted that there was a good supportive bone around the acetabular socket and no further reaming needed to be performed. The trial the same size as the last reamer used was then impacted into the acetabular vault and found to have good fit. The continuum acetabular component, one size (2mm) greater than the trial was then called for. The cluster holes were placed posteriorly and the component was impacted in a position of approximately 40 degrees abduction and 20 degrees anteversion. This matched this patient's [place] anteversion and it was noted that the cup had excellent stability but due to this patient's bone quality I felt that additional screw fixation would be beneficial. Therefore, a 30 mm screw was directed posteriorly and superiorly through the acetabular component with again excellent bite. Attention was then directed to the acetabular liner. The anteversion and abduction angle of the component was noted to be very good. A 15 elevated sara er was used and locked into position with the elevation posterior superior. Osteophytes around the posterior and inferior aspect of the acetabulum were trimmed as necessary to prevent any impingement. Attention was then directed back to the proximal femur. Retractors were placed around the proximal femur and box osteotome was used followed by canal finder and trochanteric reamer. Cylindrical reaming was performed. Progressive broaching was then performed starting with a #10 broach and progressing final size, in a position of 15 degrees anteversion. [place] anteversion was within 5 degrees of stem position. The final size broach had excellent fit and fill of the patient's metaphysis and diaphysis. Trial reduction was then performed starting with size 32 mm femoral head and various neck combination of stability, limb length equality, and soft tissue tension. Trial components were then removed. The canal was lavaged and the final size femoral stem component was impacted into position. The implant fit very well and had excellent stability. The femoral head was then impacted onto the Cabrera taper. Blood and debris were removed from the acetabular component and the hip was then reduced and checked for stability, limb length and soft tissue tension. These parameters found to be satisfactory, the wound was then thoroughly irrigated with normal saline. Final hemostasis was obtained using electrocautery and IV tranexamic acid, 1 g given at the time of prepping and draping, and another 1 g given at the time of closure. Local anesthetic solution consisting of ropivacaine with epinephrine, clonidine, and ketorolac was also used throughout the case targeting the capsule, fascia, and skin. Closure of the capsule was performed meticulously using #3 Vicryl suture. Four [id number] sutures were placed in the posterior capsule along with repair of the external rotators. The fascia clara was then repaired using combination of #3 Vicryl suture in interrupted fashion and Quill and running fashion. 2-0 Vicryl suture was used for the subcutaneous tissues and 3-0 Quill for the skin. Dermabond or Steri-Strips were then applied. The patient tolerated the procedure well. There were no complications and the wound bed was dry and there was no need for drain placement. Sterile dressing was then applied and the patient was carefully removed from the operating room table, placed on the stretcher and was taken to the recovery room in stable condition. Sponge and needle counts were correct.
[2019-09-25] MEDS ORDERED: HYDROmorphone 0.5 MG/0.5 ML SYRINGE IVP PRN ×3 (18:12)
[2019-09-25] MEDS: LACTATED RINGERS 1,000 ML IV SCH (18:23)
--- NOTE | 2019-09-25 18:32 | XR ---
EXAMINATION TYPE: XR Hip Limited RT DATE OF EXAM: 09/25/2019 COMPARISON: NONE HISTORY: Postop TECHNIQUE: Single view FINDINGS: There is right hip prosthesis. Components are in anatomic position. IMPRESSION: No complicating process seen.
[2019-09-25] MEDS: ASPIRIN 325 MG TAB PO SCH (20:41)
[2019-09-25] MEDS ORDERED: ATORVASTATIN 40 MG TAB PO SCH (21:00)
[2019-09-25] MEDS ORDERED: SENNOSIDES-DOCUSATE SODIUM 1 EACH TAB PO SCH (21:00)
[2019-09-25] MEDS ORDERED: PREGABALIN 75 MG CAP PO SCH (21:00)
[2019-09-26 05:02] LABS: Glucose,Whole Blood 187 mg/dL (75-99)
[2019-09-26] MEDS: LACTATED RINGERS 1,000 ML IV SCH ×2 (05:50→08:50)
[2019-09-26 08:01] VITALS: BP 102/58; PULSE 88; RESP 16; TEMP 98.2
--- NOTE | 2019-09-26 08:35 | P.DS ---
Providers Date of admission: 09/25/19 14:04 Expected date of discharge: 09/26/19 Attending physician: Juwan Ervin Consults: 09/25/19 15:00 Consult Physician Routine Consulting Provider: Juan M Ace Consult Reason/Comments: Medical management Do you want consulting provider notified?: Yes Primary care physician: Juan M Ace - Discharge Diagnosis(es) (1) Primary osteoarthritis of right hip Status: Acute (2) Status post total hip replacement, right Status: Acute Hospital Course: This is a 73-year-old female with known history of degenerative arthritis of the right hip. The patient presents for evaluation. After discussion and consideration patient elects to proceed with total hip arthroplasty. The patient is seen preoperatively by Dr. Juan M Ace and cleared for surgery. Patient is admitted to [facility] on 09/25/2019 for total hip ar throplasty. The procedures performed without complication or sequelae. The patient is doing well postoperatively. Labs and vital signs are stable on day of discharge. On day of discharge patient's hip incision is healing well. There is minimal erythema. There is no drainage noted at this time. There is minimal soft tissue swelling to the hip and thigh. Patient has full foot and ankle motion without difficulty or pain. Neurovascular status to the right lower extremity is intact. Patient is discharged to home in good condition. Pertinent Studies: Laboratory Tests 09/26/19 08:17 WBC 10.7 H RBC 2.81 L Hgb 8.2 L D Hct 25.3 L Neutrophils # 9.3 H Lymphocytes # 0.9 L Patient Condition at Discharge: Stable Plan - Discharge Summary Discharge Rx Participant: Yes New Discharge Prescriptions: New Aspirin 325 mg PO DAILY #30 tab Continue Atorvastatin [Lipitor] 40 mg PO HS Diazepam [Valium] 5 mg PO DAILY PRN PRN Reason: Anxiety Pregabalin [Lyrica] 75 mg PO HS Aspirin 325 mg PO DAILY #30 tab Acetaminophen [Tylenol] 325 mg PO Q6HR PRN PRN Reason: Pain Discontinued Ibuprofen [Advil] 800 mg PO DAILY@1200 Celecoxib [CeleBREX] 200 mg PO DAILY PRN PRN Reason: Pain Discharge Medication List Atorvastatin [Lipitor] 40 mg PO HS 08/31/16 [History] Diazepam [Valium] 5 mg PO DAILY PRN 03/22/18 [History] Pregabalin [Lyrica] 75 mg PO HS 04/21/19 [History] Aspirin 325 mg PO DAILY #30 tab 05/02/19 [Rx] Acetaminophen [Tylenol] 325 mg PO Q6HR PRN 09/22/19 [History] Aspirin 325 mg PO DAILY #30 tab 09/26/19 [Rx] Follow up Appointment(s)/Referral(s): Juan M Ace MD [Primary Care Provider] - 10/03/19 10:40 am [facility], [NON-STAFF] - 1 Week Juwan Ervin MD [STAFF PHYSICIAN] - 10/12/19 2:05 pm Patient Instructions/Handouts: Total Hip Replacement (DC) Activity/Diet/Wound Care/Special Instructions: Keep incision clean and dry. Apply dry gauze over incision to prevent rubbing. May shower in 48 hours after surgery if no drainage from incision. Weightbearing as tolerated with a walker. Aspirin 325mg daily. Advil and celebrex as needed. Follow up with Dr. Ervin in 2 weeks. Call [facility] with any questions or concerns, . Discharge Disposition: HOME WITH HOME HEALTH SERVICES
[2019-09-26] MEDS: ASPIRIN 325 MG TAB PO SCH (08:50)
[2019-09-26] MEDS ORDERED: MELOXICAM 7.5 MG TAB PO SCH (09:00)
[2019-09-26 09:41] LABS: Basophils % (A) 0 %; Eosinophils % (A) 0 %; HCT 25.3 % (34.0-46.0); Lymphocytes # (A) 0.9 k/uL (1.0-4.8); Lymphocytes % (A) 8 %; MCH 29.1 pg (25.0-35.0); MCHC 32.4 g/dL (31.0-37.0); MCV 89.9 fL (80.0-100.0); Mean Platelet Volume 6.1; Monocytes # (A) 0.4 k/uL (0-1.0); Monocytes % (A) 4 %; Neutrophils # (A) 9.3 k/uL (1.3-7.7); Neutrophils % (A) 87 %; Platelet Count 286 k/uL (150-450); RBC 2.81 m/uL (3.80-5.40); RDW 14.6 % (11.5-15.5); WBC 10.7 k/uL (3.8-10.6)
[2019-09-26 09:42] LABS: HGB 8.2 gm/dL (11.4-16.0)
--- NOTE | 2019-09-26 11:17 | P.CONS ---
History of Present Illness - History of Present Illness 73-year-old female is postoperative total right hip arthroplasty for osteoart hritis. Patient is sitting in chair at bedside a ready to be discharged Review of Systems Musculoskeletal: right: knee pain Past Medical History Past Medical History: CVA/TIA, Fibromyalgia, Hyperlipidemia, Osteoarthritis (OA) Additional Past Medical History / Comment(s): hx of kidney stones, states had several "silent" TIA's History of Any Multi-Drug Resistant Organisms: None Reported Past Surgical History: Back Surgery, Section, Hysterectomy, Joint Replacement Additional Past Surgical History / Comment(s): retina sx, bibi cataracts, left hip replacement Past Anesthesia/Blood Transfusion Reactions: Postoperative Nausea & Vomiting (PONV) Past Psychological History: No Psychological Hx Reported Smoking Status: Never smoker Past Alcohol Use History: Rare Past Drug Use History: None Reported - Past Family History Mother Family Medical History: No Reported History Medications and Allergies Home Medications Medication Instructions Recorded Confirmed Type Atorvastatin [Lipitor] 40 mg PO HS 08/31/16 09/22/19 History Ibuprofen [Advil] 800 mg PO DAILY@1200 08/31/16 09/22/19 History Celecoxib [CeleBREX] 200 mg PO DAILY PRN 03/22/18 09/22/19 History Diazepam [Valium] 5 mg PO DAILY PRN 03/22/18 09/22/19 History Pregabalin [Lyrica] 75 mg PO HS 04/21/19 09/22/19 History Aspirin 325 mg PO DAILY #30 tab 05/02/19 09/22/19 Rx Acetaminophen [Tylenol] 325 mg PO Q6HR PRN 09/22/19 09/22/19 History Aspirin 325 mg PO DAILY #30 tab 09/26/19 Rx Allergies Allergy/AdvReac Type Severity Reaction Status Date / Time gabapentin Allergy Nausea Verified 09/22/19 08:35 hydrocodone Allergy Nausea & Verified 09/22/19 08:35 Vomiting naproxen Allergy Nausea Verified 09/22/19 08:35 hydromorphone [From Dilaudid] AdvReac Nausea & Verified 09/22/19 08:35 Vomiting meloxicam [From Mobic] AdvReac Nausea & Verified 09/22/19 08:35 Vomiting methocarbamol AdvReac Nausea & Verified 09/22/19 08:35 Vomiting morphine AdvReac Nausea & Verified 09/22/19 08:35 Vomiting tramadol AdvReac Nausea & Verified 09/22/19 08:48 Vomiting & dizzyness Physical Exam Vitals: Vital Signs Temp Pulse Pulse Resp BP Pulse Ox 09/26/19 08:00 98.2 F 88 16 102/58 95 09/26/19 06:42 90 92/55 95 09/26/19 05:41 93 95/53 94 L 09/26/19 05:19 88 96/52 93 L 09/26/19 04:41 84 96/50 94 L 09/26/19 04:11 73 96/51 95 09/26/19 03:41 79 96/54 95 09/26/19 03:26 84 95/49 96 09/26/19 02:55 68 106/58 94 L 09/26/19 02:40 78 106/58 96 09/26/19 02:25 75 110/62 95 09/26/19 02:11 87 101/56 97 09/26/19 01:55 75 106/61 97 09/26/19 01:40 67 108/58 96 09/26/19 01:25 77 106/61 95 09/26/19 01:10 73 102/58 96 09/26/19 00:56 74 99/55 99 09/26/19 00:41 66 101/51 98 09/26/19 00:25 60 100/61 97 09/26/19 00:11 66 119/62 100 09/25/19 23:55 67 103/66 94 L 09/25/19 23:38 53 L 92/58 92 L 09/25/19 23:34 56 L 65/36 90 L 09/25/19 20:45 73 124/74 98 09/25/19 20:30 73 122/70 97 09/25/19 20:15 75 111/65 98 09/25/19 20:00 74 122/69 94 L 09/25/19 19:45 78 123/73 97 09/25/19 19:30 69 123/71 99 09/25/19 19:15 69 125/78 99 09/25/19 18:40 98.3 F 73 18 120/60 99 09/25/19 18:13 80 16 115/55 97 09/25/19 17:58 69 16 121/59 100 09/25/19 17:43 97.8 F 76 16 141/63 95 09/25/19 14:28 98 F 82 16 98 Intake and Output 09/25/19 09/26/19 09/26/19 22:59 06:59 14:59 Intake Total 951 250 Output Total 200 575 350 Balance 751 -575 -100 Intake: IV 951 Oral 250 Output: Urine 575 350 Estimated Blood Loss 200 Other: Voiding Method Toilet Bedpan # Voids 0 2 Weight 51.71 kg - Constitutional General appearance: mild distress - EENT Eyes: PERRLA Ears: bilateral: normal - Neck Neck: normal ROM - Respiratory Respiratory: bilateral: CTA - Cardiovascular Rhythm: regular - Gastrointestinal General gastrointestinal: soft - Integumentary Integumentary: normal - Neurologic Neurologic: CNII-XII intact - Psychiatric Psychiatric: A&O x's 3, appropriate affect, intact judgment & insight Results CBC & Chem 7: 09/26/19 08:17 Labs: Abnormal Lab Results - Last 24 Hours (Table) 09/25/19 09/26/19 Range/Units 23:34 08:17 WBC 10.7 H (3.8-10.6) k/uL RBC 2.81 L (3.80-5.40) m/uL Hgb 8.2 L D (11.4-16.0) gm/dL Hct 25.3 L (34.0-46.0) % Neutrophils # 9.3 H (1.3-7.7) k/uL Lymphocytes # 0.9 L (1.0-4.8) k/uL POC Glucose (mg/dL) 187 H (75-99) mg/dL Assessment and Plan Plan: Assessment post total right hip arthroplasty Osteoarthritis History of hyperlipidemia Fibromyalgia Lumbar degenerative disc disease history of CVA/TIA Anemia secondary to blood loss expected Plan Stable for discharge
== END 2019-09-26 11:51 | disposition home health service (06) | DRG 470 ==
LOC: 2ORMAIN 14:04 → 4SSUR 17:52
PROVIDERS: ADMIT Orthopaedic Surgery; ATTEND Orthopaedic Surgery
PROC: 0SR904A Replacement of Right Hip Joint with Ceramic on Polyethylene Synthetic Substitute, Uncemented, Open Approach (ICD-10-PCS; principal; 2019-09-25 15:20)
DX: M16.11 Unilateral primary osteoarthritis, right hip (principal); D62 Acute posthemorrhagic anemia; E78.5 Hyperlipidemia, unspecified; M79.7 Fibromyalgia; M85.80 Other specified disorders of bone density and structure, unspecified site; M51.36 Other intervertebral disc degeneration, lumbar region; Z79.1 Long term (current) use of non-steroidal anti-inflammatories (NSAID); Z79.82 Long term (current) use of aspirin; Z79.899 Other long term (current) drug therapy; Z86.73 Personal history of transient ischemic attack (TIA), and cerebral infarction without residual deficits; Z87.442 Personal history of urinary calculi; Z90.710 Acquired absence of both cervix and uterus; Z96.642 Presence of left artificial hip joint; Z88.6 Allergy status to analgesic agent; Z88.5 Allergy status to narcotic agent; Z88.8 Allergy status to other drugs, medicaments and biological substances; Z98.42 Cataract extraction status, left eye; Z98.41 Cataract extraction status, right eye; Z96.1 Presence of intraocular lens
CPT/HCPCS: 36415; 73501; 85025; 86850; 86900; 86901; 88300

== ENCOUNTER → 2020-07-19 | Outpatient (CLI) | payer MEDICARE, OTHER ==
--- NOTE | 2020-07-22 12:00 | MM ---
Reason for exam: screening (asymptomatic). Last mammogram was performed 1 year and 5 months ago. History: Patient is postmenopausal. Physical Findings: A clinical breast exam by your physician is recommended on an annual basis and results should be correlated with mammographic findings. MG 3D Screening Mammo W/Cad Bilateral CC and MLO view(s) were taken. Prior study comparison: February 14, 2019, right breast MG 3d work up w/cad RT. February 08, 2019, bilateral MG 3d screening mammo w/cad. There are scattered fibroglandular densities. No significant changes when compared with prior studies. ASSESSMENT: Benign, BI-RAD 2 RECOMMENDATION: Routine screening mammogram of both breasts in 1 year.
== END | disposition home or self-care (01) ==
LOC: RADMAMWWP 07:31
PROVIDERS: ATTEND Family Medicine
DX: Z12.31 Encounter for screening mammogram for malignant neoplasm of breast (principal)
CPT/HCPCS: 77063; 77067

== ENCOUNTER → 2021-08-01 | Outpatient (CLI) | payer MEDICARE, OTHER ==
--- NOTE | 2021-08-05 10:18 | MM ---
Reason for exam: screening (asymptomatic). Last mammogram was performed 1 year ago. History: Patient is postmenopausal. Physical Findings: A clinical breast exam by your physician is recommended on an annual basis and results should be correlated with mammographic findings. MG 3D Screening Mammo W/Cad Bilateral CC and MLO view(s) were taken. Prior study comparison: July 19, 2020, bilateral MG 3d screening mammo w/cad. February 08, 2019, bilateral MG 3d screening mammo w/cad. January 18, 2018, bilateral MG 3d screening mammo w/cad. There are scattered fibroglandular densities. Stable superior left MLO asymmetric density. No significant changes when compared with prior studies. ASSESSMENT: Benign, BI-RAD 2 RECOMMENDATION: Routine screening mammogram of both breasts in 1 year.
== END | disposition home or self-care (01) ==
LOC: RADMAMWWP 15:06
PROVIDERS: ATTEND Family Medicine
DX: Z12.31 Encounter for screening mammogram for malignant neoplasm of breast (principal); Z78.0 Asymptomatic menopausal state
CPT/HCPCS: 77063; 77067

== ENCOUNTER → 2022-03-18 | Outpatient (CLI) | payer MEDICARE ==
--- NOTE | 2022-03-18 16:30 | BD ---
EXAMINATION TYPE: Axial Bone Density DATE OF EXAM: 03/18/2022 COMPARISON: 02/08/2019 CLINICAL HISTORY: 76 years year old Female. ICD-10 CODE: Z78.0 MENOPAUSAL STATE Height: 59 IN Weight: 115 LBS FRAX RISK QUESTIONS: Secondary Osteoporosis: 3. Menopause before 45: PARTIAL HYST AGE 34 RISK FACTORS HISTORY OF: Surgery to Spine/Hip(RE[facility]): L SPINE 2013 AND 2014; [facility] HIP REPLACEMENTS 2018 Active: YES Diet low in dairy products/other sources of calcium: YES Postmenopausal woman: PARTIAL HYST AGE 34 MEDICATIONS: Osteoporosis Medications: NOT NOW Which medication: Fosamax How Long: NOT NOW TOOK FOR 3 YEARS Additional Medications: ASPIRIN, ADVIL, LYRICA,ATORVASTATIN EXAM MEASUREMENTS: Bone mineral densitometry was performed using the [employer]. PT HAS HAD L- SPINE SURGERY IN 2013 AND 2014 RE[facility] HIP REPLACEMENTS 2018 Bone mineral density about the L Wrist (g/cm2): 0.549 T Score values are as follows: -----Dist. R+U: -3.1 -----Prox. R+U: -1.6 -----Radius total: -2.1 Bone mineral density has: Decreased -5.3% since study of: 02/08/2019 IMPRESSION: Osteopenia (T Score between -2.5 and -1). There is slightly increased risk of fracture and the patient may be considered for treatment. Re-Screen 2-5 years. NOTE: T-SCORE=SD OF THE YOUNG ADULT MEAN.
== END | disposition home or self-care (01) ==
LOC: RADBDWWP 11:12
PROVIDERS: ATTEND Family Medicine
DX: M85.80 Other specified disorders of bone density and structure, unspecified site (principal)
CPT/HCPCS: 77081

== ENCOUNTER 2022-06-23 00:19 | Emergency (ER) | payer MEDICARE ==
[2022-06-23 00:45] VITALS: TEMP 98.3
[2022-06-23] MEDS ORDERED: ONDANSETRON 4 MG/2 ML VIAL IVP STA (02:36)
[2022-06-23] MEDS ORDERED: SODIUM CHLORIDE 0.9% 1,000 ML IV STA (02:36)
--- NOTE | 2022-06-23 02:37 | ED ---
Abdominal Pain HPI - General Chief Complaint: Abdominal Pain Stated Complaint: Right Flank Pain, Possible Kidney Stone Time Seen by Provider: 06/23/22 02:36 Source: patient, RN notes reviewed, old records reviewed Mode of arrival: ambulatory Limitations: no limitations - History of Present Illness Initial Comments: This is a 76-year-old female DF for evaluation she presents today for evaluation of severe right flank pain. History of kidney stones feels like kidney stones. Patient is denying requiring anything pain medication for this but she is wa lking around the room holding aside like she does have a kidney stone. Patient has positive nausea no vomiting no fevers no other complaints MD Complaint: abdominal pain, flank pain -: hour(s) Location: R flank Radiation: none Migration to: no migration Severity: severe Severity scale (1-10): 9 Quality: stabbing Consistency: constant Improves With: nothing Worsens With: nothing Associated Symptoms: nausea Treatments Prior to Arrival: NSAIDs - Related Data Home Medications Medication Instructions Recorded Confirmed Atorvastatin [Lipitor] 40 mg PO HS 08/31/16 09/22/19 diazePAM [Valium] 5 mg PO DAILY PRN 03/22/18 09/22/19 Pregabalin [Lyrica] 75 mg PO HS 04/21/19 09/22/19 Acetaminophen [Tylenol] 325 mg PO Q6HR PRN 09/22/19 09/22/19 Previous Rx's Medication Instructions Recorded Aspirin 325 mg PO DAILY #30 tab 05/02/19 Aspirin 325 mg PO DAILY #30 tab 09/26/19 Allergies Allergy/AdvReac Type Severity Reaction Status Date / Time gabapentin Allergy Nausea Verified 06/23/22 00:41 hydrocodone Allergy Nausea & Verified 06/23/22 00:41 Vomiting naproxen Allergy Nausea Verified 06/23/22 00:41 hydromorphone [From Dilaudid] AdvReac Nausea & Verified 06/23/22 00:41 Vomiting meloxicam [From Mobic] AdvReac Nausea & Verified 06/23/22 00:41 Vomiting methocarbamol AdvReac Nausea & Verified 06/23/22 00:41 Vomiting morphine AdvReac Nausea & Verified 06/23/22 00:41 Vomiting tramadol AdvReac Nausea & Verified 06/23/22 00:41 Vomiting & dizzyness Review of Systems ROS Statement: Those systems with pertinent positive or pertinent negative responses have been documented in the HPI. ROS Other: All systems not noted in ROS Statement are negative. Past Medical History Past Medical History: CVA/TIA, Fibromyalgia, Hyperlipidemia Additional Past Medical History / Comment(s): fibromygia History of Any Multi-Drug Resistant Organisms: None Reported Past Surgical History: Back Surgery, Section, Hysterectomy Additional Past Surgical History / Comment(s): eye Past Anesthesia/Blood Transfusion Reactions: Postoperative Nausea & Vomiting (PONV) Past Psychological History: No Psychological Hx Reported Smoking Status: Never smoker Past Alcohol Use History: Rare Past Drug Use History: None Reported - Past Family History Mother Family Medical History: No Reported History General Exam Limitations: no limitations General appearance: alert, in no apparent distress, anxious Head exam: Present: atraumatic, normocephalic, normal inspection Eye exam: Present: normal appearance, PERRL, EOMI. Absent: scleral icterus, conjunctival injection, periorbital swelling ENT exam: Present: normal exam, mucous membranes moist Neck exam: Present: normal inspection. Absent: tenderness, meningismus, lymphadenopathy Respiratory exam: Present: normal lung sounds bilaterally. Absent: respiratory distress, wheezes, rales, rhonchi, stridor Cardiovascular Exam: Present: regular rate, normal rhythm, normal heart sounds. Absent: systolic murmur, diastolic murmur, rubs, gallop, clicks GI/Abdominal exam: Present: soft, normal bowel sounds. Absent: distended, tenderness, guarding, rebound, rigid Extremities exam: Present: normal inspection, full ROM, normal capillary refill. Absent: tenderness, pedal edema, joint swelling, calf tenderness Back exam: Present: normal inspection Neurological exam: Present: alert, oriented X3, CN II-XII intact Psychiatric exam: Present: normal affect, normal mood Skin exam: Present: warm, dry, intact, normal color. Absent: rash Course Vital Signs 06/23/22 06/23/22 00:41 04:27 Temperature 98.3 F Pulse Rate 77 88 Respiratory 16 15 Rate Blood Pressure 169/82 143/77 O2 Sat by Pulse 98 98 Oximetry - Reevaluation(s) Reevaluation #1: 06/23/22 06:46 Medical record is reviewed Reevaluation #2: 06/23/22 06:46 Patient's pain is controlled Reevaluation #3: 06/23/22 06:46 Patient informed results and questions are answered Medical Decision Making - Medical Decision Making 76 female to the ER for evaluation patient presents today for evaluation of flank pain. Patient is positive for kidney stone but now requiring requesting anything greater than Aleve. Patient will be discharged home - Lab Data Result diagrams: 06/23/22 03:14 06/23/22 03:14 Lab Results 06/23/22 06/23/22 06/23/22 Range/Units 03:14 03:14 03:14 WBC 12.2 H (3.8-10.6) k/uL RBC 4.60 (3.80-5.40) m/uL Hgb 13.8 (11.4-16.0) gm/dL Hct 42.9 (34.0-46.0) % MCV 93.3 (80.0-100.0) fL MCH 29.9 (25.0-35.0) pg MCHC 32.1 (31.0-37.0) g/dL RDW 13.2 (11.5-15.5) % Plt Count 263 (150-450) k/uL MPV 7.3 Neutrophils % 78 % Lymphocytes % 13 % Monocytes % 5 % Eosinophils % 2 % Basophils % 1 % Neutrophils # 9.5 H (1.3-7.7) k/uL Lymphocytes # 1.5 (1.0-4.8) k/uL Monocytes # 0.6 (0-1.0) k/uL Eosinophils # 0.2 (0-0.7) k/uL Basophils # 0.1 (0-0.2) k/uL PT 10.3 (9.0-12.0) sec INR 0.9 (<1.2) APTT 24.2 (22.0-30.0) sec Sodium 144 (137-145) mmol/L Potassium 3.7 (3.5-5.1) mmol/L Chloride 106 (98-107) mmol/L Carbon Dioxide 25 (22-30) mmol/L Anion Gap 13 mmol/L BUN 14 (7-17) mg/dL Creatinine 0.91 (0.52-1.04) mg/dL Est GFR (CKD-EPI)AfAm 71 (>60 ml/min/1.73 sqM) Est GFR (CKD-EPI)NonAf 62 (>60 ml/min/1.73 sqM) Glucose 103 H (74-99) mg/dL Plasma Lactic Acid Asaf (0.7-2.0) mmol/L Calcium 9.7 (8.4-10.2) mg/dL Total Bilirubin 0.4 (0.2-1.3) mg/dL AST 33 (14-36) U/L ALT 25 (4-34) U/L Alkaline Phosphatase 101 (38-126) U/L Total Protein 7.6 (6.3-8.2) g/dL Albumin 4.8 (3.5-5.0) g/dL Amylase 113 H (30-110) U/L Lipase 192 (23-300) U/L 06/23/22 Range/Units 03:14 WBC (3.8-10.6) k/uL RBC (3.80-5.40) m/uL Hgb (11.4-16.0) gm/dL Hct (34.0-46.0) % MCV (80.0-100.0) fL MCH (25.0-35.0) pg MCHC (31.0-37.0) g/dL RDW (11.5-15.5) % Plt Count (150-450) k/uL MPV Neutrophils % % Lymphocytes % % Monocytes % % Eosinophils % % Basophils % % Neutrophils # (1.3-7.7) k/uL Lymphocytes # (1.0-4.8) k/uL Monocytes # (0-1.0) k/uL Eosinophils # (0-0.7) k/uL Basophils # (0-0.2) k/uL PT (9.0-12.0) sec INR (<1.2) APTT (22.0-30.0) sec Sodium (137-145) mmol/L Potassium (3.5-5.1) mmol/L Chloride (98-107) mmol/L Carbon Dioxide (22-30) mmol/L Anion Gap mmol/L BUN (7-17) mg/dL Creatinine (0.52-1.04) mg/dL Est GFR (CKD-EPI)AfAm (>60 ml/min/1.73 sqM) Est GFR (CKD-EPI)NonAf (>60 ml/min/1.73 sqM) Glucose (74-99) mg/dL Plasma Lactic Acid Asaf 0.8 (0.7-2.0) mmol/L Calcium (8.4-10.2) mg/dL Total Bilirubin (0.2-1.3) mg/dL AST (14-36) U/L ALT (4-34) U/L Alkaline Phosphatase (38-126) U/L Total Protein (6.3-8.2) g/dL Albumin (3.5-5.0) g/dL Amylase (30-110) U/L Lipase (23-300) U/L Disposition Clinical Impression: Right ureteral calculus Disposition: HOME SELF-CARE Condition: Good Instructions (If sedation given, give patient instructions): Kidney Stones (ED) Is patient prescribed a controlled substance at d/c from ED?: No Referrals: Juan M Ace MD [Primary Care Provider] - 1-2 days Time of Disposition: 04:00
[2022-06-23] MEDS ORDERED: IBUPROFEN 200 MG TAB PO STA (03:00)
[2022-06-23 03:30] LABS: Albumin 4.8 g/dL (3.5-5.0); Calcium 9.7 mg/dL (8.4-10.2); Potassium 3.7 mmol/L (3.5-5.1); Total Bilirubin 0.4 mg/dL (0.2-1.3); Total Protein 7.6 g/dL (6.3-8.2)
[2022-06-23 03:35] LABS: INR 0.9 (<1.2); Partial Thromboplastin Time 24.2 sec (22.0-30.0); Prothrombin Time 10.3 sec (9.0-12.0)
[2022-06-23 03:41] LABS: Basophils # (A) 0.1 k/uL (0-0.2); Basophils % (A) 1 %; Eosinophils # (A) 0.2 k/uL (0-0.7); Eosinophils % (A) 2 %; HCT 42.9 % (34.0-46.0); HGB 13.8 gm/dL (11.4-16.0); Lymphocytes # (A) 1.5 k/uL (1.0-4.8); Lymphocytes % (A) 13 %; MCH 29.9 pg (25.0-35.0); MCHC 32.1 g/dL (31.0-37.0); MCV 93.3 fL (80.0-100.0); Mean Platelet Volume 7.3; Monocytes # (A) 0.6 k/uL (0-1.0); Monocytes % (A) 5 %; Neutrophils # (A) 9.5 k/uL (1.3-7.7); Neutrophils % (A) 78 %; Platelet Count 263 k/uL (150-450); RDW 13.2 % (11.5-15.5); WBC 12.2 k/uL (3.8-10.6)
--- NOTE | 2022-06-23 03:53 | CT ---
EXAMINATION TYPE: CT abdomen pelvis wo con DATE OF EXAM: 06/23/2022 COMPARISON: 03/22/2018 HISTORY: right flank pain CT DLP: 386.3 mGycm Automated exposure control for dose reduction was used. The lung bases are clear. No pleural effusion. Heart size is normal. No pericardial effusion. Liver a nd spleen appear intact. There is no pancreatic mass. Gallbladder appears normal. The stomach is inta ct. There is no adrenal mass. There are multiple bilateral renal calculi that measure up to 3 mm. There i s right-sided hydronephrosis and hydroureter. Detail of the pelvis limited due to metal artifact from the bilateral hip prosthesis. Ureter is dilated down to the urinary bladder. Urinary bladder not wel l seen due to metal artifact. No inguinal hernia. No free fluid in the pelvis. No pelvic mass. Cecum is low in the pelvis. Appendix not clearly seen. No sign of thickened appendix. There is a 3 cm cyst anterior left kidney. Left ureter not dilated. No retroperitoneal adenopathy. There is no mesenteric edema. No ascites or free air. No bowel obstruction. IMPRESSION: Right-sided hydronephrosis and hydroureter. I suspect distal right ureteral obstruction. Urinary blad ursula and the distal ureters not seen due to metal artifact. Multiple bilateral renal calculi. Calculi appear slightly increased compared to old exam. Right-sided hydronephrosis slightly worse than old exam.
[2022-06-23 04:27] VITALS: BP 143/77; PULSE 88; RESP 15
== END 2022-06-23 04:27 | disposition home or self-care (01) ==
LOC: EC 00:19
DX: N13.2 Hydronephrosis with renal and ureteral calculous obstruction (principal); E78.5 Hyperlipidemia, unspecified; M79.7 Fibromyalgia; Z86.73 Personal history of transient ischemic attack (TIA), and cerebral infarction without residual deficits; Z88.5 Allergy status to narcotic agent; Z88.6 Allergy status to analgesic agent; Z88.8 Allergy status to other drugs, medicaments and biological substances; Z79.899 Other long term (current) drug therapy
CPT/HCPCS: 36415; 80053; 82150; 83605; 83690; 85025; 85610; 85730; 74176; 99284; 96374; 96361; J2405

== ENCOUNTER → 2022-07-02 | Outpatient (CLI) | payer MEDICARE ==
--- NOTE | 2022-07-02 15:22 | US ---
EXAMINATION TYPE: US kidneys/renal and bladder DATE OF EXAM: 07/02/2022 COMPARISON: CT abdomen and pelvis June 23, 2022 CLINICAL HISTORY: N13.30 UNSPECIFIED HYDRONEPHROSIS. Hx of stones. EXAM MEASUREMENTS: Right Kidney: 9 x 3.6 x 4.3 cm Left Kidney: 9.3 x 4.4 x 3.6 cm Right Kidney: No hydronephrosis or masses seen Left Kidney: Cystic area lower pole 2.6 x 2.3 x 2.8 cm. Bladder: wnl Bilateral Jets seen: Yes Renal sizes are symmetric and lower limits of normal. No hydronephrosis is evident currently bilatera lly. Left kidney has 2.6 cm benign-appearing thin-walled cyst mid to lower pole level likely correspo nding to axial image 44. There are scattered nonshadowing hyperechoic foci bilaterally correlating wi th nonobstructing small renal calculi on recent CT. IMPRESSION: Interval resolution of right sided hydronephrosis consistent with interval passage of dis zoey ureter calculus or successful interval treatment.
== END | disposition home or self-care (01) ==
LOC: RADUSWWP 14:11
PROVIDERS: ATTEND Urology
DX: Z87.442 Personal history of urinary calculi (principal)
CPT/HCPCS: 76770

== ENCOUNTER → 2023-08-03 | Outpatient (CLI) | payer MEDICARE ==
--- NOTE | 2023-08-04 08:14 | MM ---
Reason for Exam: Screening (asymptomatic). Last mammogram was performed 2 year(s) and 0 month(s) ago. Patient History: Menarche at age 14. First Full-Term at age 20. Hysterectomy at age 35. Postmenopausal. Patient has history of breast feeding. Risk Values: Елена 5 year model risk: 1.3%. NCI Lifetime model risk: 2.6%. Prior Study Comparison: 02/14/2019 Right Diagnostic Mammogram, [facility]. 07/19/2020 Bilateral Screening Mammogram, [facility]. 08/01/2021 Bilateral Screening Mammogram, [facility]. Tissue Density: There are scattered fibroglandular densities. Findings: Analyzed By CAD. There is no suspicious group of microcalcifications or new suspicious mass in either breast. Overall Assessment: Negative, BI-RAD 1 Management: Screening Mammogram of both breasts in 1 year. A clinical breast exam by your physician is recommended on an annual basis and results should be correlated with mammographic findings. Note on Елена scores and lifetime risk: 1. A Елена score greater than 3% is considered moderate risk. If this is the case, consider specialist referral to assess eligibility for a risk reducing agent. If overall lifetime risk for the development of breast cancer is 20% or higher, the patient may qualify for future screening with alternating mammogram and breast MRI. Electronically signed and approved by: Angelo Doss D.O.
== END | disposition home or self-care (01) ==
LOC: RADMAMWWP 10:46
PROVIDERS: ATTEND Family Medicine
DX: Z12.31 Encounter for screening mammogram for malignant neoplasm of breast (principal); Z78.0 Asymptomatic menopausal state
CPT/HCPCS: 77063; 77067

== ENCOUNTER 2023-08-18 17:01 | Emergency (ER) | payer MEDICARE ==
--- NOTE | 2023-08-18 17:29 | ED ---
Lower Extremity Injury HPI <Rashmi Klein - Last Filed: 08/18/23 17:28> <Martin Miller - Last Filed: 08/18/23 20:30> <Reginaldo Becerra - Last Filed: 08/18/23 22:39> - General Stated Complaint: right hip pain Time Seen by Provider: 08/18/23 17:28 - History of Present Illness Initial Comments: Patient is 77-year-old female who presents to the emergency department for hip pain. Patient feels her right hip is dislocated. She has history of hip replacement (Rashmi Klein) - Related Data Home Medications Medication Instructions Recorded Confirmed Atorvastatin [Lipitor] 40 mg PO HS 08/31/16 09/22/19 diazePAM [Valium] 5 mg PO DAILY PRN 03/22/18 09/22/19 Pregabalin [Lyrica] 75 mg PO HS 04/21/19 09/22/19 Acetaminophen [Tylenol] 325 mg PO Q6HR PRN 09/22/19 09/22/19 Previous Rx's Medication Instructions Recorded Aspirin 325 mg PO DAILY #30 tab 05/02/19 Aspirin 325 mg PO DAILY #30 tab 09/26/19 Allergies Allergy/AdvReac Type Severity Reaction Status Date / Time gabapentin Allergy Nausea Verified 08/18/23 17:31 hydrocodone Allergy Nausea & Verified 08/18/23 17:31 Vomiting naproxen Allergy Nausea Verified 08/18/23 17:31 hydromorphone [From Dilaudid] AdvReac Nausea & Verified 08/18/23 17:31 Vomiting meloxicam [From Mobic] AdvReac Nausea & Verified 08/18/23 17:31 Vomiting methocarbamol AdvReac Nausea & Verified 08/18/23 17:31 Vomiting morphine AdvReac Nausea & Verified 08/18/23 17:31 Vomiting tramadol AdvReac Nausea & Verified 08/18/23 17:31 Vomiting & dizzyness Review of Systems ROS Other: All systems not noted in ROS Statement are negative. <Rashmi Klein - Last Filed: 08/18/23 17:28> ROS Other: All systems not noted in ROS Statement are negative. <Martin Miller - Last Filed: 08/18/23 20:30> ROS Other: All systems not noted in ROS Statement are negative. <Reginaldo Becerra - Last Filed: 08/18/23 22:39> ROS Statement: Those systems with pertinent positive or pertinent negative responses have been documented in the HPI. Past Medical History Past Medical History: CVA/TIA, Fibromyalgia, Hyperlipidemia Additional Past Medical History / Comment(s): fibromygia History of Any Multi-Drug Resistant Organisms: None Reported Past Surgical History: Back Surgery, Section, Hysterectomy Additional Past Surgical History / Comment(s): eye Past Anesthesia/Blood Transfusion Reactions: Postoperative Nausea & Vomiting (PONV) Past Psychological History: No Psychological Hx Reported Smoking Status: Never smoker Past Alcohol Use History: Rare Past Drug Use History: None Reported - Past Family History Mother Family Medical History: No Reported History <Rashmi Klein - Last Filed: 08/18/23 17:28> General Exam <Rsahmi Klein - Last Filed: 08/18/23 17:28> - General Exam Comments Initial Comments: Visual Physical Exam Vital signs reviewed General: Well-appearing, nontoxic, no acute distress. Head: Normocephalic, atraumatic Eyes: PERRLA, EOMI ENT: Airway patent Chest: Nonlabored breathing Skin: No visual rash, normal skin tone Neuro: Alert and oriented 3 Musculoskeletal: No gross abnormalities (Rashmi Klein) Course Vital Signs 08/18/23 08/18/23 08/18/23 17:28 20:05 20:15 Temperature 98.2 F Pulse Rate 99 110 H 79 Respiratory 18 20 19 Rate Blood Pressure 174/94 172/99 125/60 O2 Sat by Pulse 99 100 97 Oximetry 08/18/23 08/18/23 08/18/23 20:20 20:35 20:50 Temperature Pulse Rate 84 77 76 Respiratory 15 20 18 Rate Blood Pressure 122/104 147/84 152/72 O2 Sat by Pulse 99 97 98 Oximetry 08/18/23 08/18/23 08/18/23 21:05 21:20 21:39 Temperature 98.0 F Pulse Rate 76 77 Respiratory 18 16 Rate Blood Pressure 154/72 165/91 O2 Sat by Pulse 97 99 Oximetry Procedures - Orthopedic Joint Reduction Joint #1 Consent Obtained: verbal consent, written consent Side: right Joint Reduction Location: hip Analgesia: procedural sedation Technique Used: traction/counter-traction Post-Reduction Neuro Exam: intact Post-Reduction Vascular Exam: intact <Reginaldo Becerra - Last Filed: 08/18/23 22:39> - Orthopedic Joint Reduction Joint #1 Additional Comments: neurovascularly intact following reduction (Reginaldo Becerra) Medical Decision Making <Rashmi Klein - Last Filed: 08/18/23 17:28> - Medical Decision Making I performed the QuickNote portion of this chart - Rashmi Klein PA-C (Rashmi Klein) Disposition <Rashmi Klein - Last Filed: 08/18/23 17:28> Is patient prescribed a controlled substance at d/c from ED?: No <Martin Miller - Last Filed: 08/18/23 20:30> <Reginaldo Becerra - Last Filed: 08/18/23 22:39> Clinical Impression: Hip dislocation, right Disposition: HOME SELF-CARE Condition: Good Instructions (If sedation given, give patient instructions): Moderate Sedation (ED), Hip Dislocation (ED) Referrals: Juan M Ace MD [Primary Care Provider] - 1-2 days Juwan Ervin MD [Family Provider] - 1-2 days
--- NOTE | 2023-08-18 18:23 | XR ---
EXAMINATION TYPE: XR Hip RT and AP Pelvis DATE OF EXAM: 08/18/2023 5:55 PM CLINICAL INDICATION:Female, 77 years old with history of pain; [facility] COMPARISON: None. TECHNIQUE: XR Hip RT and AP Pelvis; hip was examined in the frontal and lateral projections and a AP pelvis. FINDINGS/IMPRESSION: Superior-posterior right hip arthroplasty dislocation. The left hip arthroplasties in appropriate pos ition. No evidence of fracture.
[2023-08-18] MEDS ORDERED: PROPOFOL 10 MG/ML 20 ML VIAL IV ONE (19:50)
[2023-08-18] MEDS ORDERED: MORPHINE SULFATE 4 MG/ML SYRINGE IVP STA (20:10)
[2023-08-18] MEDS ORDERED: ONDANSETRON 4 MG/2 ML VIAL IVP STA (20:10)
[2023-08-18 21:40] VITALS: BP 165/91; PULSE 77; RESP 16; TEMP 98
== END 2023-08-18 21:39 | disposition home or self-care (01) ==
LOC: EC 17:01
DX: S73.004A Unspecified dislocation of right hip, initial encounter (principal); E78.5 Hyperlipidemia, unspecified; Z79.899 Other long term (current) drug therapy; Z88.5 Allergy status to narcotic agent; Z88.6 Allergy status to analgesic agent; Z88.8 Allergy status to other drugs, medicaments and biological substances; X58.XXXA Exposure to other specified factors, initial encounter
CPT/HCPCS: 73502; 27250; 99283; 96374; 96375; J2270; J2405; J2704

== ENCOUNTER 2024-06-01 15:53 | Emergency (ER) | payer MEDICARE ==
--- NOTE | 2024-06-01 16:15 | ED ---
Animal Bite HPI - General Stated Complaint: bat bite Time Seen by Provider: 06/01/24 16:14 Source: patient, RN notes reviewed Mode of arrival: ambulatory Limitations: no limitations - History of Present Illness Initial Comments: 78-year-old female presented to ER with a chief complaint of possible bat bite. Patient states for the past 1 to 2 days she has noticed bats in her house. She states today she had an vice president of software development come to her home to remove them. She states he mentioned he possibly was bitten on the back of his neck and advised her to be cautious and see her PCP for evaluation. She states for the past day she has felt 2 bumps on the back of her neck that she has been picking at with her nail. She is concerned that she was possibly bitten in that area. Yara leonidas's tetanus is up-to-date. She denies any fevers, chills, nausea, vomitin or other complaints. She would like to be vaccinated against rabies. - Related Data Home Medications Medication Instructions Recorded Confirmed Atorvastatin [Lipitor] 40 mg PO HS 08/31/16 09/22/19 diazePAM [Valium] 5 mg PO DAILY PRN 03/22/18 09/22/19 Pregabalin [Lyrica] 75 mg PO HS 04/21/19 09/22/19 Acetaminophen [Tylenol] 325 mg PO Q6HR PRN 09/22/19 09/22/19 Previous Rx's Medication Instructions Recorded Aspirin 325 mg PO DAILY #30 tab 05/02/19 Aspirin 325 mg PO DAILY #30 tab 09/26/19 Allergies Allergy/AdvReac Type Severity Reaction Status Date / Time gabapentin Allergy Nausea Verified 06/01/24 16:46 hydrocodone Allergy Nausea & Verified 06/01/24 16:46 Vomiting naproxen Allergy Nausea Verified 06/01/24 16:46 hydromorphone [From Dilaudid] AdvReac Nausea & Verified 06/01/24 16:46 Vomiting meloxicam [From Mobic] AdvReac Nausea & Verified 06/01/24 16:46 Vomiting methocarbamol AdvReac Nausea & Verified 06/01/24 16:46 Vomiting morphine AdvReac Nausea & Verified 06/01/24 16:46 Vomiting tramadol AdvReac Nausea & Verified 06/01/24 16:46 Vomiting & dizzyness Review of Systems ROS Statement: Those systems with pertinent positive or pertinent negative responses have been documented in the HPI. ROS Other: All systems not noted in ROS Statement are negative. Past Medical History Past Medical History: CVA/TIA, Fibromyalgia, Hyperlipidemia Additional Past Medical History / Comment(s): fibromygia History of Any Multi-Drug Resistant Organisms: None Reported Past Surgical History: Back Surgery, Section, Hysterectomy Additional Past Surgical History / Comment(s): eye Past Anesthesia/Blood Transfusion Reactions: Postoperative Nausea & Vomiting (PONV) Past Psychological History: No Psychological Hx Reported Smoking Status: Never smoker Past Alcohol Use History: Rare Past Drug Use History: None Reported - Past Family History Mother Family Medical History: No Reported History General Exam - General Exam Comments Initial Comments: Visual Physical Exam Vital signs reviewed General: Well-appearing, nontoxic, no acute distress. Head: Normocephalic, atraumatic Eyes: PERRLA, EOMI ENT: Airway patent Chest: Nonlabored breathing Skin: No visual rash, normal skin tone Neuro: Alert and oriented 3 Musculoskeletal: No gross abnormalities General appearance: alert, in no apparent distress Head exam: Present: atraumatic, normocephalic, normal inspection Eye exam: Present: normal appearance, PERRL, EOMI. Absent: scleral icterus, conjunctival injection, periorbital swelling ENT exam: Present: normal exam, mucous membranes moist Neck exam: Present: normal inspection, other (Two pinpoint adjacent erythematous raised lesions to posterior neck. No surrounding erythema or purulent drainage.). Absent: tenderness, meningismus, lymphadenopathy Respiratory exam: Present: normal lung sounds bilaterally. Absent: respiratory distress, wheezes, rales, rhonchi, stridor Cardiovascular Exam: Present: regular rate, normal rhythm, normal heart sounds. Absent: systolic murmur, diastolic murmur, rubs, gallop, clicks Neurological exam: Present: alert, oriented X3, CN II-XII intact Skin exam: Present: warm, dry, intact, normal color. Absent: rash Course Vital Signs 06/01/24 06/01/24 16:43 19:15 Temperature 98.1 F Pulse Rate 88 80 Respiratory 18 16 Rate Blood Pressure 198/96 150/88 O2 Sat by Pulse 96 98 Oximetry Medical Decision Making - Medical Decision Making I performed the quick note portion of this chart. Electronically signed by Homero Khalil PA-C Was pt. sent in by a medical professional or institution (AIYANA Burnett, PARKING GARAGE MANAGER, urgent care, hospital, or assisted...) When possible be specific @ -No Did you speak to anyone other than the patient for history (EMS, parent, family, police, friend...)? What history was obtained from this source @ -No Did you review nursing and triage notes (agree or disagree)? Why? @ -I reviewed and agree with nursing and triage notes Were old charts reviewed (outside hosp., previous admission, EMS record, old EKG, old radiological studies, urgent care reports/EKG's, assisted records)? Report findings @ -No old charts were reviewed Differential Diagnosis (chest pain, altered mental status, abdominal pain women, abdominal pain men, vaginal bleeding, weakness, fever, dyspnea, syncope, headache, dizziness, GI bleed, back pain, seizure, CVA, palpatations, mental health, musculoskeletal)? @ -Cellulitis, bat bite, cyst, abscess This list is not meant to be all- inclusive EKG interpreted by me (3pts min.). @ -None X-rays interpreted by me (1pt min.). @ -None done CT interpreted by me (1pt min.). @ -None done U/S interpreted by me (1pt. min.). @ -None done What testing was considered but not performed or refused? (CT, X-rays, U/S, labs)? Why? @ -None What meds were considered but not given or refused? Why? @ -None Did you discuss the management of the patient with other professionals (professionals i.e. AIYANA Burnett, PARKING GARAGE MANAGER, lab, RT, psych nurse, social welfare clerk, anesthesia associate, teacher, certification officer, clinical case manager)? Give summary @ -No Was smoking cessation discussed for >3mins.? @ -No Was critical care preformed (if so, how long)? @ -No Were there social determinants of health that impacted care today? How? (Homelessness, low income, unemployed, alcoholism, drug addiction, transportation, low edu. Level, literacy, decrease access to med. care, [facility], rehab)? @ -No Was there de-escalation of care discussed even if they declined (Discuss DNR or withdrawal of care, Hospice)? DNR status @ -No What co-morbidities impacted this encounter? (DM, HTN, Smoking, COPD, CAD, Cancer, CVA, ARF, Chemo, Hep., AIDS, mental health diagnosis, sleep apnea, morbid obesity)? @ -None Was patient admitted / discharged? Hospital course, mention meds given and route, prescriptions, significant lab abnormalities, going to OR and other pertinent info. @ -Discharge. 78-year-old female presented to the ER with a chief complaint of possible bat bite. History and physical exam completed. Vitals stable. Patient in no signs of acute distress and nontoxic-appearing. Exam remarkable for 2 adjacent erythematous raised lesions to the posterior neck. No surrounding erythema or purulent drainage present. Otherwise exam unremarkable. Rabies vaccination and immunoglobulin given. Prescription given for serial vaccinations. Tetanus is up-to-date, per patient. Strict return parameters discussed. Advised close follow-up with PCP. Patient verbally expressed understanding and agreement with care plan. Case discussed with ED attending, Dr. Anne. Undiagnosed new problem with uncertain prognosis? @ -No Drug Therapy requiring intensive monitoring for toxicity (Heparin, Nitro, Insulin, Cardizem)? @ -No Were any procedures done? @ -No Diagnosis/symptom? @ -Possible bat bite Acute, or Chronic, or Acute on Chronic? @ -Acute Uncomplicated (without systemic symptoms) or Complicated (systemic symptoms)? @ -Uncomplicated Side effects of treatment? @ -No Exacerbation, Progression, or Severe Exacerbation? @ -No Poses a threat to life or bodily function? How? (Chest pain, [place], [place], pneumonia, PE, COPD, DKA, ARF, appy, cholecystitis, CVA, Diverticulitis, Homicidal, Suicidal, threat to staff... and all critical care pts) @ -No Disposition Clinical Impression: Bat bite wound Disposition: HOME SELF-CARE Condition: Stable Instructions (If sedation given, give patient instructions): Rabies Vaccine (By injection), Rabies Immune Globulin (By injection), Rabies (ED) Additional Instructions: Please follow-up on 84, 8-7 and 8-15 for rabies vaccines. Follow-up with PCP. Return to the ER for any new or worsening concerns. Is patient prescribed a controlled substance at d/c from ED?: No Referrals: Juan M Ace MD [Primary Care Provider] - 1-2 days Time of Disposition: 18:33
[2024-06-01] MEDS: RABIES VACCINE (PCEC) 2.5 UNIT KIT IM ONE (19:00)
[2024-06-01] MEDS: RABIES IMM GLOB 300 UNIT/2 ML VIAL IM ONE (19:01)
[2024-06-01 19:17] VITALS: BP 150/88; PULSE 80; RESP 16; TEMP 98.1
== END 2024-06-01 19:19 | disposition home or self-care (01) ==
LOC: EC 15:53
DX: S11.95XA Open bite of unspecified part of neck, initial encounter (principal); Z88.5 Allergy status to narcotic agent; Z88.8 Allergy status to other drugs, medicaments and biological substances; Z23 Encounter for immunization; Z20.3 Contact with and (suspected) exposure to rabies; Z29.14 Encounter for prophylactic rabies immune globulin; W64.XXXA Exposure to other animate mechanical forces, initial encounter
CPT/HCPCS: 90377; 90471; 90675; 96372; 99283

== ENCOUNTER → 2024-08-04 | Outpatient (CLI) | payer MEDICARE ==
--- NOTE | 2024-08-04 09:03 | BD ---
EXAMINATION TYPE: Axial Bone Density DATE OF EXAM: 08/04/2024 CLINICAL HISTORY: 78 years old Female. ICD-10 CODE: Z78.0 ASYMPTOMATIC MENOPAUSAL STA Height: 59 Weight: 111.4 FRAX RISK QUESTIONS: Alcohol (3 or more units per day): no Family History (Parent hip fracture): no Glucocorticoids (More than 3mos): no (Ex: prednisone, prednisolone, methylprednisolone, dexamethasone, and hydrocortisone). History of Fracture in Adulthood: no Secondary Osteoporosis: 1. Type 1 Diabetes: no 2. Hyperthyroidism: no 3. Menopause before 45: yes 4. Malnutrition: no 5. Chronic liver disease: no Rheumatoid Arthritis: no Current Tobacco Use: no RISK FACTORS HISTORY OF: Hip Fracture (Right/Left): no Spine Fracture: compression fx When: 2016 History of Wrist Fracture: no Surgery to Spine/Hip(right/left)/Wrist (right/left): Bilateral hip replacement, Lumbar surgeries When: 2019 MEDICATIONS: Thyroid Medications: no Osteoporosis Medications: no EXAM MEASUREMENTS: Bone mineral density about the L Wrist (g/cm2): 0.541 T Score values are as follows: -----Dist. R+U: -3.0 -----Prox. R+U: -1.2 -----Radius total: -1.9 Z Score values are as follows: -----Dist. R+U: -0.5 -----Prox. R+U: 1.3 -----Radius total: 0.5 Bone mineral density has: increased 4.1 % since study of: 03/18/2022 FRAX%s: The graph provided illustrates a N/A% chance for a major osteoporotic fx and a % chance for t he hips probability for fx in 10 years time. IMPRESSION: Osteopenia (T Score between -2.5 and -1). There is slightly increased risk of fracture and the patient may be considered for treatment. Re-Screen 2-5 years. NOTE: T-SCORE=SD OF THE YOUNG ADULT MEAN. [facility], , 08/04/2024 9:00 AM
--- NOTE | 2024-08-04 14:31 | MM ---
Reason for Exam: Screening (asymptomatic). Last screening mammogram was performed 12 month(s) ago. Patient History: Menarche at age 14. First Full-Term at age 20. Hysterectomy at age 35. Postmenopausal. Patient has history of breast feeding. Risk Values: Елена 5 year model risk: 1.3%. NCI Lifetime model risk: 2.4%. Prior Study Comparison: 07/19/2020 Bilateral Screening Mammogram, [facility]. 08/01/2021 Bilateral Screening Mammogram, [facility]. 08/03/2023 Bilateral MG 3D screening mammo w/cad, [facility]. Tissue Density: The breasts are heterogeneously dense, which may obscure small masses. Findings: Analyzed By CAD. There is no suspicious group of microcalcifications or new suspicious mass in either breast. Overall Assessment: Benign, BI-RAD 2 Management: Screening Mammogram of both breasts in 1 year. . Patient should continue monthly self-breast exams. A clinical breast exam by your physician is recommended on an annual basis. This exam should not preclude additional follow-up of suspicious palpable abnormalities. Note on Елена scores and lifetime risk: 1. A Елена score greater than 3% is considered moderate risk. If this is the case, consider specialist referral to assess eligibility for a risk reducing agent. 2. If overall lifetime risk for the development of breast cancer is 20% or higher, the patient may qualify for future screening with alternating mammogram and breast MRI. [facility], , 08/04/2024 2:28 PM. Electronically signed and approved by: Balbir Barreto M.D. Radiologis
== END | disposition home or self-care (01) ==
LOC: RADMAMWWP 07:50
PROVIDERS: ATTEND Family Medicine
DX: Z12.31 Encounter for screening mammogram for malignant neoplasm of breast (principal); R92.333 Mammographic heterogeneous density, bilateral breasts; M85.89 Other specified disorders of bone density and structure, multiple sites; Z78.0 Asymptomatic menopausal state; Z96.643 Presence of artificial hip joint, bilateral
CPT/HCPCS: 77063; 77067; 77080

== ENCOUNTER 2024-11-05 11:52 | Emergency (ER) | payer MEDICARE ==
[2024-11-05 12:25] VITALS: TEMP 97.6
--- NOTE | 2024-11-05 13:33 | ED ---
Recheck HPI - General Chief Complaint: Recheck/Abnormal Lab/Rx Stated Complaint: BP RISING Time Seen by Provider: 11/05/24 12:02 Source: patient, RN notes reviewed Mode of arrival: ambulatory Limitations: no limitations - History of Present Illness Initial Comments: Patient is a 78 year old female who presents for rising blood pressure since this morning. She states she checks her BP every morning, and it was 170/99 at 0950 and she repeatedly checked, BPmax 211/112 at 1124. She admits to anxiety in the mornings. She states that her only new medication is Famotidine for GERD. She denies chest pain, shortness of breath, headache, nausea, vomiting, d iarrhea, fever. She notes that her average blood pressure is around 120s/70s, and she has been taking her BP every morning for years. She is not currently taking any BP medication. Patient does admit that her blood pressure has been considerably elevated over the last several weeks. - Related Data Home Medications Medication Instructions Recorded Confirmed Atorvastatin [Lipitor] 40 mg PO HS 08/31/16 09/22/19 diazePAM [Valium] 5 mg PO DAILY PRN 03/22/18 09/22/19 Pregabalin [Lyrica] 75 mg PO HS 04/21/19 09/22/19 Acetaminophen [Tylenol] 325 mg PO Q6HR PRN 09/22/19 09/22/19 Previous Rx's Medication Instructions Recorded Aspirin 325 mg PO DAILY #30 tab 05/02/19 Aspirin 325 mg PO DAILY #30 tab 09/26/19 lisinopriL [Zestril] 10 mg PO DAILY #30 tab 11/05/24 Allergies Allergy/AdvReac Type Severity Reaction Status Date / Time gabapentin Allergy Nausea Verified 11/05/24 12:26 hydrocodone Allergy Nausea & Verified 11/05/24 12:26 Vomiting naproxen Allergy Nausea Verified 11/05/24 12:26 hydromorphone [From Dilaudid] AdvReac Nausea & Verified 11/05/24 12:26 Vomiting meloxicam [From Mobic] AdvReac Nausea & Verified 11/05/24 12:26 Vomiting methocarbamol AdvReac Nausea & Verified 11/05/24 12:26 Vomiting morphine AdvReac Nausea & Verified 11/05/24 12:26 Vomiting tramadol AdvReac Nausea & Verified 11/05/24 12:26 Vomiting & dizzyness Review of Systems ROS Statement: Those systems with pertinent positive or pertinent negative responses have been documented in the HPI. ROS Other: All systems not noted in ROS Statement are negative. Past Medical History Past Medical History: CVA/TIA, Fibromyalgia, Hyperlipidemia Additional Past Medical History / Comment(s): fibromygia History of Any Multi-Drug Resistant Organisms: None Reported Past Surgical History: Back Surgery, Section, Hysterectomy Additional Past Surgical History / Comment(s): eye Past Anesthesia/Blood Transfusion Reactions: Postoperative Nausea & Vomiting (PONV) Past Psychological History: No Psychological Hx Reported Smoking Status: Never smoker Past Alcohol Use History: Rare Past Drug Use History: None Reported - Past Family History Mother Family Medical History: No Reported History General Exam Limitations: no limitations General appearance: alert, in no apparent distress Head exam: Present: atraumatic, normocephalic, normal inspection Neck exam: Present: normal inspection. Absent: tenderness, meningismus, lymphadenopathy Respiratory exam: Present: normal lung sounds bilaterally. Absent: respiratory distress, wheezes, rales, rhonchi, stridor Cardiovascular Exam: Present: regular rate, normal rhythm, normal heart sounds. Absent: systolic murmur, diastolic murmur, rubs, gallop, clicks GI/Abdominal exam: Present: soft, normal bowel sounds. Absent: distended, tenderness, guarding, rebound, rigid Neurological exam: Present: alert, oriented X3, CN II-XII intact Psychiatric exam: Present: normal affect, normal mood Skin exam: Present: warm, dry, intact, normal color. Absent: rash Course Vital Signs 11/05/24 11/05/24 12:23 14:15 Temperature 97.6 F Pulse Rate 81 78 Respiratory 18 16 Rate Blood Pressure 198/100 187/110 O2 Sat by Pulse 99 98 Oximetry Medical Decision Making - Medical Decision Making Was pt. sent in by a medical professional or institution (, PA, PATTERNMAKER, urgent care, hospital, or [place] [facility] [place]...) When possible be specific @ -No Did you speak to anyone other than the patient for history (EMS, parent, family, police, friend...)? What history was obtained from this source @ -No Did you review nursing and triage notes (agree or disagree)? Why? @ -I reviewed and agree with nursing and triage notes Were old charts reviewed (outside hosp., previous admission, EMS record, old EKG, old radiological studies, urgent care reports/EKG's, [place] health [place] records)? Report findings @ -No old charts were reviewed Differential Diagnosis (chest pain, altered mental status, abdominal pain women, abdominal pain men, vaginal bleeding, weakness, fever, dyspnea, syncope, headache, dizziness, GI bleed, back pain, seizure, CVA, palpatations, mental health, musculoskeletal)? @ -[Renal failure, dehydration, hypertension, EKG interpreted by me (3pts min.). @ -As above X-rays interpreted by me (1pt min.). @ -None done CT interpreted by me (1pt min.). @ -None done U/S interpreted by me (1pt. min.). @ -None done What testing was considered but not performed or refused? (CT, X-rays, U/S, labs)? Why? @ -None What meds were considered but not given or refused? Why? @ -None Did you discuss the management of the patient with other professionals (professionals i.e. , PA, PATTERNMAKER, lab, RT, psych nurse, administrator social welfare, communications professional, teacher, chemical instrumentation officer, pillowcase cutter)? Give summary @ -No Was smoking cessation discussed for >3mins.? @ -No Was critical care preformed (if so, how long)? @ -No Were there social determinants of health that impacted care today? How? (Homelessness, low income, unemployed, alcoholism, drug addiction, transportation, low edu. Level, literacy, decrease access to med. care, detention, rehab)? @ -No Was there de-escalation of care discussed even if they declined (Discuss DNR or withdrawal of care, Hospice)? DNR status @ -No What co-morbidities impacted this encounter? (DM, HTN, Smoking, COPD, CAD, Cancer, CVA, ARF, Chemo, Hep., AIDS, mental health diagnosis, sleep apnea, morbid obesity)? @ -None Was patient admitted / discharged? Hospital course, mention meds given and route, prescriptions, significant lab abnormalities, going to OR and other pertinent info. @ -Discharge patient presented for hypertension patient's been having worsening blood pressure at home worse today she is asymptomatic. Patient was given dose of hydralazine, blood pressure is improved patient discharging lisinopril she has a follow-up appointment next week with PCP. Undiagnosed new problem with uncertain prognosis? @ -No Drug Therapy requiring intensive monitoring for toxicity (Heparin, Nitro, Insulin, Cardizem)? @ -No Were any procedures done? @ -No Diagnosis/symptom? @Hypertension Acute, or Chronic, or Acute on Chronic? @ -Acute Uncomplicated (without systemic symptoms) or Complicated (systemic symptoms)? @ -Complicated Side effects of treatment? @ -No Exacerbation, Progression, or Severe Exacerbation? @ -No Poses a threat to life or bodily function? How? (Chest pain, [place], [place], pneumonia, PE, COPD, DKA, ARF, appy, cholecystitis, CVA, Diverticulitis, Homicidal, Suicidal, threat to staff... and all critical care pts) @ -yes untreated hypertension risk to cardiac function - Lab Data Result diagrams: 11/05/24 13:36 11/05/24 13:36 Lab Results 11/05/24 11/05/24 Range/Units 13:36 13:36 WBC 6.0 (3.8-10.6) k/uL RBC 4.58 (3.80-5.40) m/uL Hgb 13.3 (11.4-16.0) gm/dL Hct 41.3 (34.0-46.0) % MCV 90.2 (80.0-100.0) fL MCH 29.1 (25.0-35.0) pg MCHC 32.3 (31.0-37.0) g/dL RDW 13.1 (11.5-15.5) % Plt Count 237 (150-450) k/uL MPV 7.5 Neutrophils % 71 % Lymphocytes % 19 % Monocytes % 6 % Eosinophils % 2 % Basophils % 1 % Neutrophils # 4.3 (1.3-7.7) k/uL Lymphocytes # 1.1 (1.0-4.8) k/uL Monocytes # 0.4 (0-1.0) k/uL Eosinophils # 0.1 (0-0.7) k/uL Basophils # 0.0 (0-0.2) k/uL Sodium 142 (137-145) mmol/L Potassium 4.2 (3.5-5.1) mmol/L Chloride 105 (98-107) mmol/L Carbon Dioxide 28 (22-30) mmol/L Anion Gap 9 mmol/L BUN 23 H (7-17) mg/dL Creatinine 0.88 (0.52-1.04) mg/dL Est GFR (CKD-EPI)AfAm 74 (>60 ml/min/1.73 sqM) Est GFR (CKD-EPI)NonAf 64 (>60 ml/min/1.73 sqM) Glucose 103 H (74-99) mg/dL Calcium 10.0 (8.4-10.2) mg/dL Total Bilirubin 0.5 (0.2-1.3) mg/dL AST 40 H (14-36) U/L ALT 49 H (4-34) U/L Alkaline Phosphatase 88 (38-126) U/L Total Protein 7.6 (6.3-8.2) g/dL Albumin 5.0 (3.5-5.0) g/dL - EKG Data -: EKG Interpreted by Me EKG Comments: EKG performed at 13: 28 sinus rhythm rate of 79 NV 159 QRS 81 QT/QTc 361/395 Disposition Clinical Impression: Hypertension Disposition: HOME SELF-CARE Condition: Stable Instructions (If sedation given, give patient instructions): Hypertension (ED) Additional Instructions: Please return to the Emergency Department if symptoms worsen or any other concerns. Prescriptions: lisinopriL [Zestril] 10 mg PO DAILY #30 tab Is patient prescribed a controlled substance at d/c from ED?: No Referrals: Juan M Ace MD [Primary Care Provider] - 1-2 days Time of Disposition: 14:20
[2024-11-05 13:45] LABS: Basophils % (A) 1 %; Eosinophils # (A) 0.1 k/uL (0-0.7); Eosinophils % (A) 2 %; HCT 41.3 % (34.0-46.0); HGB 13.3 gm/dL (11.4-16.0); Lymphocytes # (A) 1.1 k/uL (1.0-4.8); Lymphocytes % (A) 19 %; MCH 29.1 pg (25.0-35.0); MCHC 32.3 g/dL (31.0-37.0); MCV 90.2 fL (80.0-100.0); Mean Platelet Volume 7.5; Monocytes # (A) 0.4 k/uL (0-1.0); Monocytes % (A) 6 %; Neutrophils # (A) 4.3 k/uL (1.3-7.7); Neutrophils % (A) 71 %; Platelet Count 237 k/uL (150-450); RBC 4.58 m/uL (3.80-5.40); RDW 13.1 % (11.5-15.5)
[2024-11-05 14:00] LABS: ALT 49 U/L (4-34); AST 40 U/L (14-36); African American GFR (CKD) 74 (>60 ml/min/1.73 sqM); Alkaline Phosphatase 88 U/L (38-126); Anion Gap 9 mmol/L; Blood Urea Nitrogen 23 mg/dL (7-17); Carbon Dioxide 28 mmol/L (22-30); Chloride 105 mmol/L (98-107); Glucose 103 mg/dL (74-99); Non-African American GFR(CKD) 64 (>60 ml/min/1.73 sqM); Potassium 4.2 mmol/L (3.5-5.1); Sodium 142 mmol/L (137-145); Total Bilirubin 0.5 mg/dL (0.2-1.3); Total Protein 7.6 g/dL (6.3-8.2)
[2024-11-05 14:16] VITALS: RESP 16
[2024-11-05] MEDS: hydrALAZINE HCL 20 MG/ML 1 ML VIAL IVP STA (14:22)
[2024-11-05 14:51] VITALS: BP 167/89; PULSE 89
== END 2024-11-05 14:51 | disposition home or self-care (01) ==
LOC: EC 11:52
DX: I10 Essential (primary) hypertension (principal); K21.9 Gastro-esophageal reflux disease without esophagitis; Z88.5 Allergy status to narcotic agent; Z88.8 Allergy status to other drugs, medicaments and biological substances; Z79.899 Other long term (current) drug therapy; Z86.73 Personal history of transient ischemic attack (TIA), and cerebral infarction without residual deficits
CPT/HCPCS: 36415; 93005; 80053; 85025; 99284; 96374; J0360

== ENCOUNTER → 2024-11-08 | Outpatient (CLI) | payer MEDICARE ==
--- NOTE | 2024-11-08 09:12 | XR ---
EXAMINATION TYPE: XR lumbosacral spine 5V DATE OF EXAM: 11/08/2024 8:55 AM COMPARISON: 12/31/11 CLINICAL INDICATION: Female, 78 years old with pain history of M54.42 LUMBAGO WITH SCIATIC, , FINDINGS: Severe disc/endplate degenerative change particularly at L3-S1 levels, progressed from 2011. Moderate degenerative disc disease L-1-L2 also progressed. Hypertrophic facet arthropathy mid to lower lumbar spine. Vertebral body heights are preserved. Trace grade 1 retrolisthesis L2-L3. Partially visualize d total hip arthroplasty on the lateral view. Possible 4 mm right renal stone. IMPRESSION: 1. Severe distention plate degenerative change particularly from L3 through S1 levels progressed from 2011. Moderate degenerative disc disease L-1-L2 also progressed. 2. Hypertrophic facet arthropathy mid to lower lumbar spine. Trace grade 1 retrolisthesis L2-L3. [facility], Workstation: [facility], 11/08/2024 9:10 AM
--- NOTE | 2024-11-08 09:14 | US ---
EXAMINATION TYPE: US abdomen complete DATE OF EXAM: 11/08/2024 COMPARISON: NONE CLINICAL INDICATION: Female, 78 years old with history of R10.13 EPIGASTRIC PAIN; general abd pain TECHNIQUE: Grayscale and color Doppler imaging of the abdomen was performed. FINDINGS: EXAM MEASUREMENTS: Liver Length: 10.8 cm Gallbladder Wall: 0.2 cm CBD: 0.4 cm, color Doppler imaging was utilized to isolate the common bile duct for measurement. Spleen: 9.0 cm Right Kidney: 9.3x3.1x4.2 cm Left Kidney: 9.9x3.8x4.4 cm Pancreas: wnl Liver: wnl Gallbladder: wnl Evidence for sonographic Gastelum's sign: No CBD: wnl Spleen: wnl Right Kidney: wnl Left Kidney: cyst: 2.6x2.6x2.6cm. No hydronephrosis. Upper IVC: wnl Abd Aorta: wnl IMPRESSION: A benign 2.6 cm left renal cyst. No gallstones or biliary ductal dilatation. No other specific abnorm ality seen. [facility], Workstation: [facility], 11/08/2024 9:11 AM
== END | disposition home or self-care (01) ==
LOC: RADUSWWP 07:54
PROVIDERS: ATTEND Family Medicine
DX: R10.13 Epigastric pain (principal); M54.42 Lumbago with sciatica, left side; M43.16 Spondylolisthesis, lumbar region; M47.816 Spondylosis without myelopathy or radiculopathy, lumbar region; M51.360 Other intervertebral disc degeneration, lumbar region with discogenic back pain only; N28.1 Cyst of kidney, acquired
CPT/HCPCS: 72110; 76700

== ENCOUNTER → 2024-11-22 | Outpatient (CLI) | payer MEDICARE ==
[2024-11-22 11:05] LABS: African American GFR (CKD) 76 (>60 ml/min/1.73 sqM); Blood Urea Nitrogen 12 mg/dL (7-17); Non-African American GFR(CKD) 66 (>60 ml/min/1.73 sqM)
--- NOTE | 2024-11-22 12:17 | CT ---
EXAMINATION TYPE: CT abdomen pelvis wo/w con DATE OF EXAM: 11/22/2024 HISTORY: Rt side flank pain with microhematuria hx of renal stones. CT DLP: 661.0mGycm Automated Exposure Control for Dose Reduction was Utilized. CONTRAST: CT scan of the abdomen and pelvis is performed with oral and without and with IV Contrast, patient in jected with 100 ml mL of Isovue 300. COMPARISON: Prior CT February 21, 2022 FINDINGS: LUNG BASES: No significant abnormality is appreciated. LIVER/GB: No significant abnormality is appreciated. PANCREAS: No significant abnormality is seen. SPLEEN: No significant abnormality is seen. ADRENALS: No significant abnormality is seen. KIDNEYS: Noncontrast images show multiple tiny bilateral renal calculi. Postcontrast images show symm etric cortical medullary uptake and excretion with mild to moderate right greater than left bilateral hydronephrosis redemonstrated. There is a partially exophytic 2.5 cm thin-walled cyst anteriorly at midpole level of the left kidney redemonstrated. Suboptimal evaluation of the entire bladder and dist al ureters. BOWEL: Oral contrast reaches rectum. No abnormal small or large bowel dilatation.. UTERUS/ADNEXA: Suboptimal evaluation due to hip arthroplasty. LYMPH NODES: No greater than 1cm abdominal or pelvic lymph nodes are appreciated. OSSEOUS STRUCTURES: Metallic artifact from bilateral hip arthroplasty causes streak artifact limiting evaluation of pelvic structures. Right-sided Posterior decompression changes in the lower lumbar spi ne are redemonstrated. There is moderate to severe disc space narrowing and vacuum disc phenomenon at L3-L4 and L4-5 levels. OTHER: No significant additional abnormality is seen. IMPRESSION: Multiple tiny nonobstructing renal calculi redemonstrated. No definitive obstructing uret eral calculi seen bilaterally. [id number] right greater than left bilateral hydronephrosis conchis ins present. Difficult to entirely exclude distal ureter calculus but no delayed excretion is noted. No significant change from most recent prior CT. [facility], , 11/22/2024 12:15 PM
== END | disposition home or self-care (01) ==
LOC: RADCTMAIN 10:15
PROVIDERS: ATTEND Family Medicine
DX: N13.2 Hydronephrosis with renal and ureteral calculous obstruction (principal); Z87.442 Personal history of urinary calculi
CPT/HCPCS: 82565; 84520; 74178; 36415; Q9967

== ENCOUNTER → 2024-11-29 | Outpatient (CLI) | payer MEDICARE ==
--- NOTE | 2024-11-29 10:15 | MR ---
EXAMINATION TYPE: MR lumbar spine wo con DATE OF EXAM: 11/29/2024 9:31 AM COMPARISON: MRI 04/19/2019 CLINICAL INDICATION: Female, 79 years old with history of M54.16 radiculopathy, Pain and burning down left leg and foot for many years TECHNIQUE: Multiplanar, multisequence images of the lumbar spine were acquired without IV contrast. FINDINGS: Patient with previous L4, L5 laminectomy change. There is moderate to severe degenerative disc disease redemonstrated throughout with desiccated, narr owed, and bulging discs. Associated scattered areas of endplate irregularity. Also prominent edematou s Modic type I endplate change towards the left at L4-L5 has developed now. Ligamentum flavum thickening particularly at L2-L3. Moderate hypertrophic facet arthropathy throughout the lumbar spine. Conus medullaris is normal. Vertebral body heights are preserved. Alignment is maintained though there is persistent straightenin g of the normal lumbar lordosis. No suspicious bone marrow replacement. Disc bulge and ligamentum flavum thickening contributes to worsening moderate focal spinal canal sten osis at L2-L3. Worsening mild spinal canal stenosis at L1-L2. Otherwise, bulging disks impress on the ventral thecal sac at multiple other levels. No significant spinal canal stenosis otherwise seen. On the right, changes result in severe neuroforaminal stenosis at L4-L5 and [id number] at L2-L3 , L3-L4, and L5-S1. On the left, there is severe neuroforaminal stenosis at L4-L5. Moderate to severe at L3-L4. Mild to m oderate at L2-L3 and L5-S1. Incidental left renal cortical cyst measuring 2.9 cm and left-sided parapelvic cysts measuring up to 1.2 cm. IMPRESSION: 1. Patient status post L4 and L5 laminectomy change with decompression of the spinal canal at these l evels. 2. Worsening moderate to severe degenerative disc disease throughout an interval development of edema tous Modic type I endplate change towards the left at L4-L5. 3. Moderate hypertrophic facet arthropathy redemonstrated. Ligamentum flavum thickening particularly L2-L3. 4. Changes result in worsening moderate focal spinal canal stenosis at L2-L3 and worsening mild spina l canal stenosis at L1-L2. 5. Severe bilateral neuroforaminal stenosis at L4-L5 and moderate to severe on the left at L3-L4. Mil d to moderate at additional levels as outlined above. [facility], , 11/29/2024 10:13 AM
== END | disposition home or self-care (01) ==
LOC: RADMRIMAIN 08:47
PROVIDERS: ATTEND Family Medicine
DX: M51.16 Intervertebral disc disorders with radiculopathy, lumbar region (principal); M47.26 Other spondylosis with radiculopathy, lumbar region; M48.061 Spinal stenosis, lumbar region without neurogenic claudication
CPT/HCPCS: 72148

== ENCOUNTER 2025-04-13 08:06 | Day surgery (SDC) | payer MEDICARE ==
[~2025-04-13 08:06] MED LIST changes: -ACETAMINOPHEN TAB 500 MG TAB PO ONE; -LACTATED RINGERS 1,000 ML IV SCH; +LIDOCAINE 1% (10MG/ML) FOR IV START INTRADERMA PRN; -MELOXICAM 7.5 MG TAB PO ONE; -MIDAZOLAM 2 MG/2 ML VIAL IV PRN; -ONDANSETRON 4 MG/2 ML VIAL IVP ONE; -ROPIVACAINE 246.25 MG, EPINEPHrine 0.5 MG, KETOROLAC 30 MG, cloNIDine HCL/PF 80 MCG, WA... MISCELLANE ONE; -TRANEXAMIC ACID 1,000 MG in SODIUM CHLORIDE 0.9% 100 ML IVPB ONE; -fentaNYL (PF) 50 MCG/ML 2 ML AMP IV PRN
[2025-04-13 08:32] VITALS: TEMP 98.3
[2025-04-13] MEDS: LACTATED RINGERS 1,000 ML IV ONE (08:40)
[2025-04-13] MEDS: LACTATED RINGERS 1,000 ML IV SCH (08:40)
[2025-04-13] MEDS ORDERED: LIDOCAINE 1% INJ 10MG/ML (20 ML MDV) ONE (09:01)
[2025-04-13] MEDS ORDERED: PROPOFOL 10 MG/ML 20 ML VIAL IV ONE (09:01)
--- NOTE | 2025-04-13 09:30 | P.PCN ---
Date of Procedure: 04/13/25 Procedure(s) Performed: Brief history: Patient is a pleasant 79-year-old white female scheduled for an elective upper endoscopy as well as colonoscopy as a part of evaluation of chronic persistent nausea and change in bowel habits for the last several months duration Procedure performed: Esophagogastroduodenoscopy with biopsy Colonoscopy with biopsy and snare polypectomy Preoperative diagnosis: Chronic persistent nausea Change in bowel habits Anesthesia: MAC Procedure: After informed consent was obtained from the patient was brought into the endoscopy unit and IV sedation was administered by anesthesia under continuous monitoring. Initially upper endoscopy was done. The Olympus GF 160 video endoscope was inserted inserted into the mouth and esophagus intubated without any difficulty and was gradually advanced into the stomach and duodenum and carefully examined. The bulb and second part of the duodenum appeared normal. The scope was then withdrawn into the stomach adequately insufflated with air and upon careful examination the antrum had patchy areas of erythema consistent with gastritis and biopsies were done from this area. Mucosa body, cardia and fundus appeared normal. The scope was then withdrawn into the esophagus. The GE junction was located at 40 cm to the incisors. It appeared regular with no erythema erosions or ulcerations. Rest of the esophagus appeared normal. Patient tolerated the procedure well. At this time the patient continued to remain sedation. Initial digital rectal examination was normal. Olympus CF 160 video colonoscope was then inserted into the rectum and gradually advanced to the sigmoid colon and further advancement was not possible because of acute angulation in this area. Scope was removed and pediatric colonoscopy was then introduced to the rectum with gentle manipulation was advanced into the cecum without any difficulty. Careful examination was performed as the scope was gradually being withdrawn. The prep was excellent. The cecum, ascending colon, transverse colon, descending colon, sigmoid colon and rectum appeared normal. In the proximal rectum there was a 1 cm polyp removed by snare polypectomy. Scattered sigmoid diverticulosis seen. Random biopsies were done from the ascending and descending colon rule out microscopic/collagenous colitis. Retroflexion was performed in the rectum and no lesions were noted. Patient tolerated the procedure well. Impression: 1. Upper endoscopy revealed mild antral gastritis but no evidence of esophagitis or peptic ulcer disease 2. Colonoscopy revealed 1 cm proximal rectal polyp status post snare polypectomy and scattered sigmoid diverticulosis Recommendations: Findings of this examination were discussed with the patient as well as family. She was advised to follow-up with the biopsy results. If the biopsy reveals adenoma she can have repeat colonoscopy in 3 years.. Follow-up in the office in 2 weeks.
[2025-04-13 09:47] VITALS: BP 152/76; PULSE 70; RESP 16
== END 2025-04-13 10:01 | disposition home or self-care (01) ==
LOC: ORWHC2ENDO 08:06
PROVIDERS: ATTEND Internal Medicine Gastroenterology
DX: K29.50 Unspecified chronic gastritis without bleeding (principal); D12.8 Benign neoplasm of rectum; K57.30 Diverticulosis of large intestine without perforation or abscess without bleeding; I10 Essential (primary) hypertension; E78.5 Hyperlipidemia, unspecified; M79.7 Fibromyalgia; K21.9 Gastro-esophageal reflux disease without esophagitis; F41.9 Anxiety disorder, unspecified; Z87.442 Personal history of urinary calculi; Z79.82 Long term (current) use of aspirin; Z79.899 Other long term (current) drug therapy; Z88.5 Allergy status to narcotic agent; Z88.6 Allergy status to analgesic agent; Z88.8 Allergy status to other drugs, medicaments and biological substances
CPT/HCPCS: 88305; 45385; 43239; J2003; J2704